=== PATIENT | female | born 1970 | race African-American/Black ===

== ENCOUNTER 2019-03-31 13:16 | Emergency (ER) | payer MEDICAID ==
[~2019-03-31] VITALS: Ht 177.8 cm; Wt 104.3 kg
[~2019-03-31 13:16] MED LIST: ALBU0.5N2; FURO1TAB33
[2019-03-31] MEDS ORDERED: LORazepam 0.5 MG TAB PO ONE (13:45)
[2019-03-31] MEDS ORDERED: ASPirin 81 mg TAB PO ONE (13:45)
[2019-03-31 14:45] LABS: Basophils # (auto) 0.1 uL; Eosinophils # (auto) 0.2 uL; Eosinophils % (auto) 3.4 % (0.0-7.0); Hematocrit 39.9 % (36.0-46.0); Hemoglobin 13.4 g/dL (12.2-16.2); Lymphocytes # (auto) 2.4 uL; Mean Corpuscular Hemoglobin 28.1 pg (28.0-32.0); Mean Corpuscular Hgb Conc. 33.5 g/dL (32.0-36.0); Mean Corpuscular Volume 83.7 fL (80.0-100.0); Monocytes # (auto) 0.7 uL; Monocytes % (auto) 9.5 % (0.0-12.0); Neutrophils # (auto) 3.9 uL; Neutrophils % (auto) 53.1 % (37.0-80.0); Nucleated Red Blood Cells % 0.2 %; Platelet Count (auto) 355 10^3/uL (140-450); Red Blood Cells 4.77 10^6/uL (4.0-5.20); Red Cell Distribution Width 14.4 % (11.8-14.3); White Blood Cell 7.3 10^3/uL (4.4-10.8)
[2019-03-31 15:01] LABS: Albumin 3.8 g/dL (3.4-5.0); Anion Gap 4 (5-15); Blood Urea Nitrogen 17 mg/dL (7-18); Calcium 9.4 mg/dL (8.5-10.1); Carbon Dioxide 26 mmol/L (21-32); Chloride 108 mmol/L (98-107); Glucose 136 mg/dL (74-106); INR 1.08 (0.9-1.15); Partial Thromboplastin Time 31.7 sec (23.64-32.05); Potassium 4.3 mmol/L (3.5-5.1); Sodium 138 mmol/L (136-145)
[2019-03-31 15:07] LABS: Alanine Aminotransferase 17 U/L (13-56); Alkaline Phosphatase 67 U/L (45-117); Aspartate Aminotransferase 13 U/L (15-37); BUN/Creatinine Ratio 12.1; Bilirubin, Total 0.4 mg/dL (0.2-1.0); GFR African American 51 mL/min; GFR Non-African American 42 mL/min; Total Protein 8.5 g/dL (6.4-8.2)
[2019-03-31 23:05] VITALS: BP 120/81
== END 2019-03-31 23:42 | disposition home or self-care (01) ==
LOC: ER 13:22
DX: I11.0 Hypertensive heart disease with heart failure (principal); I50.9 Heart failure, unspecified; J45.909 Unspecified asthma, uncomplicated; E11.9 Type 2 diabetes mellitus without complications; E78.5 Hyperlipidemia, unspecified; Z90.710 Acquired absence of both cervix and uterus; Z88.2 Allergy status to sulfonamides
CPT/HCPCS: 36415; 71046; 80053; 83880; 84484; 85025; 85610; 85730

== ENCOUNTER 2020-09-26 11:47 | Emergency (ER) | payer MEDICAID ==
[~2020-09-26] VITALS: Ht 177.8 cm; Wt 105.7 kg
[2020-09-26 12:39] LABS: Basophils # (auto) 0.1 10 ^3/uL (0-0.2); Basophils % (auto) 1.2 % (0.0-2.0); Eosinophils # (auto) 0.2 10 ^3/uL (0-0.8); Eosinophils % (auto) 2.6 % (0.0-7.0); Hematocrit 40.6 % (36.0-46.0); Hemoglobin 13.2 g/dL (12.2-16.2); Lymphocytes # (auto) 2.2 10 ^3/uL (0.4-5.4); Lymphocytes % (auto) 37.8 % (10.0-50.0); Mean Corpuscular Hemoglobin 27.5 pg (28.0-32.0); Mean Corpuscular Hgb Conc. 32.6 g/dL (32.0-36.0); Mean Corpuscular Volume 84.3 fL (80.0-100.0); Monocytes # (auto) 0.4 10 ^3/uL (0-1.3); Monocytes % (auto) 7.3 % (0.0-12.0); Neutrophils % (auto) 51.1 % (37.0-80.0); Nucleated Red Blood Cells % 0.2 %; Red Blood Cells 4.82 10^6/uL (4.0-5.20); Red Cell Distribution Width 14.6 % (11.8-14.3); White Blood Cell 5.9 10^3/uL (4.4-10.8)
[2020-09-26 12:47] LABS: Albumin 3.4 g/dL (3.4-5.0); Calcium 8.6 mg/dL (8.5-10.1); Potassium 3.5 mmol/L (3.5-5.1)
[2020-09-26 12:50] LABS: Bilirubin, Total 0.4 mg/dL (0.2-1.0); Total Protein 7.9 g/dL (6.4-8.2)
[2020-09-26 13:39] LABS: Urine Bacteria NONE SEEN /hpf (None Seen); Urine Blood Negative /uL (Negative); Urine Hyaline Cast FEW /lpf (0 - 2); Urine Specific Gravity 1.006 (1.001-1.035); Urine WBC 1 /hpf (0 - 5)
[2020-09-26 14:30] VITALS: BP 130/88
== END 2020-09-26 14:38 | disposition home or self-care (01) ==
LOC: ER 11:47
DX: R10.9 Unspecified abdominal pain (principal); J45.909 Unspecified asthma, uncomplicated; I11.0 Hypertensive heart disease with heart failure; I50.9 Heart failure, unspecified; E11.9 Type 2 diabetes mellitus without complications; E78.5 Hyperlipidemia, unspecified; Z90.710 Acquired absence of both cervix and uterus; Z88.2 Allergy status to sulfonamides
CPT/HCPCS: 36415; 74176; 80053; 81001; 85025; 85049

== ENCOUNTER 2024-07-14 11:35 | Inpatient (IN) | payer MEDICAID ==
[~2024-07-14] VITALS: Ht 175.3 cm; Wt 129.9 kg
[~2024-07-14 11:35] MED LIST changes: +ONDA-144 PO
--- NOTE | 2024-07-14 12:06 | ECG ---
[facility] Test Date: 2024-07-14 Test Time: 12:02:23 Pat Name: EULALIO DUVALL Department: ER Room: [address] [place] [address] Gender: F Motion Designer: CARRIE : 1970 Requested By: MILLIE BENITO Order Number: [id number] Reading MD: Jaxon Andrade Measurements Intervals [place] Rate: 90 P: 58 [place]: 169 QRS: 12 QRSD: 108 T: 132 QT: 374 QTc: 458 Interpretive Statements Sinus rhythm Biatrial enlargement Incomplete left bundle branch block Electronically Signed On 07-19-2024 20:48:16 PDT by Jaxon Andrade Please click the below link to view image of tracing.
--- NOTE | 2024-07-14 12:57 | ED.PDOC ---
History of Present Illness HPI Comments 53F presents to the ER w/ prior Hx of Asthma, Cancer, CHF-15%, and Pacemaker which all may be associated to the c/c of SOB and CP just today. Pt reports that her PCP- called and informed her to go to the ER and that she will be admitted because of her CHF being at 15%. Pt notes that the CP does come and go. PMHx of DM, High Lipids, HTN, and Kidney Stones. SHx of Hysterectomy and C- Section. Denies chills, fever, N/V/D or no other associated symptoms, modifiers, recent injuries or sick contacts at this time. Chief Complaint: Extremity Swelling Time Seen by MD: 12:05 Primary Care Provider: ESTEBAN Qureshi Notes: Nurses Notes, Medications, Allergies Allergies: Coded Allergies: Naproxen (Verified Allergy, Unknown, 03/31/19) Sulfa Drugs (Verified Allergy, Unknown, 03/31/19) Home Meds Active Scripts Ondansetron (Zofran) 4 Mg Tab, 1 TAB PO BID, #20 TAB Prov:BERTHA ELMORE 10/29/21 Reported Medications Furosemide (Lasix) 20 Mg Tb, 10 DAILY 01/10/10 Albuterol Sulfate (Albuterol Sulfate) 0.5 % Neb 01/10/10 Information Source: Patient Mode of Arrival: Ambulatory Severity: Moderate Timing: Hours Duration: Since onset, Hours Prehospital treatment: None Past Medical History PAST MEDICAL HISTORY: Asthma, Cancer, CHF (15%), DM, High Lipids, HTN, Kidney Stones Surgical History: , Hysterectomy, Pacemaker 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 Family History Family History: Reviewed,noncontributory to illness, Unknown Social History Smoker: Non-Smoker Alcohol: Unknown Drugs: Denies Drug Use Lives In: Home Constitutional: denies: chills, diaphoresis, fatigue, fever, malaise, sweats, weakness, others EENTM: denies: blurred vision, double vision, ear bleeding, ear discharge, ear drainage, ear pain, ear ringing, eye pain, eye redness, hearing loss, mouth pain, mouth swelling, nasal discharge, nose bleeding, nose congestion, nose pain, photophobia, tearing, throat pain, throat swelling, voice changes, others Respiratory: reports: shortness of breath; denies: cough, hemoptysis, orthopnea, SOB at rest, SOB with excertion, stridor, wheezing, others Cardiovascular: reports: chest pain; denies: dizzy spells, diaphoresis, Dyspnea on exertion, edema, irregular heart beat, left arm pain, lightheadedness, palpitations, PND, syncope, others Gastrointestinal: denies: abdomen distended, abdominal pain, blood streaked bowels, constipated, diarrhea, dysphagia, difficulty swallowing, hematemesis, melena, nausea, poor appetite, poor fluid intake, rectal bleeding, rectal pain, vomiting, others Genitourinary: denies: abnormal vagina bleeding, burning, dyspareunia, dysuria, flank pain, frequency, hematuria, incontinence, pain, , vagina discharge, urgency, others Neurological: denies: dizziness, fainting, headache, left sided numbness, left sided weakness, numbness, paresthesia, pre-existing deficit, right sided numbness, right sided weakness, seizure, speech problems, tingling, tremors, weakness, others Musculoskeletal: denies: back pain, gout, joint pain, joint swelling, muscle pain, muscle stiffness, neck pain, others Integumetry: denies: bruises, change in color, change in hair/nails, dryness, laceration, lesions, lumps, rash, wounds, others Allergic/Immunocompromised: denies: Difficulty Healing, Frequent Infections, Hives, Itching, others Hematologic/Lymphatic: denies: anemia, blood clots, easy bleeding, easy bruising, swollen glands, others Endocrine: denies: excessive hunger, excessive sweating, excessive thirst, excessive urination, flushing, intolerance to cold, intolerance to heat, unexplained weight gain, unexplained weight loss, others Psychiatric: denies: anxiety, bipolar disorder, depression, hopeless, panic disorder, schizophrenia, sleepless, suicidal, others All Other Systems: Reviewed and Negative Physical Exam General Appearance: Moderate Distress, Normal HEENT: Normal ENT Inspection, Pharynx Normal, TMs Normal Neck: Full Range of Motion, Non-Tender, Normal, Normal Inspection Respiratory: Chest Non-Tender, No Accessory Muscle Use, No Respiratory Distress, Other (Coarse breath sounds) Cardiovascular: No Edema, No JVD, No Murmur, No Gallop, Normal Peripheral Pulses, Regular Rate/Rhythm Breast Exam: Deferred Gastrointestinal: No Organomegaly, Non Tender, No Pulsatile Mass, Normal Bowel Sounds, Soft Genitalia: Deferred Pelvic: Deferred Rectal: Deferred Extremities: No calf tenderness, Normal capillary refill, Normal inspection, Normal range of motion, Non-tender, No pedal edema Musculoskeletal : Apperance: Normal Neurologic: Alert, cancer program coordinator II-XII nml as Tested, No Motor Deficits, Normal Affect, Normal Mood, No Sensory Deficits Cerebellar Function: Normal Reflexes: Normal Skin: Dry, Normal Color, Warm Peripheral Pulses: 3+ Radial (R), 3+ Radial (L) Lymphatic: No Adenopathy Was a procedure done? Was a procedure done?: No EKG EKG : Pulse Rate (adult): 98 [place]: Normal Cardiac Rhythm: NSR Block: None Hypertrophy: None ST: Normal Differential Dx Considerations may include: CHF Electrolyte imbalance X-Ray, Labs, Meds, VS Vital Signs Date Time Temp Pulse Resp B/P (MAP) Pulse Ox O2 Delivery O2 Flow Rate FiO2 07/14/24 13:38 96 16 110/81 (91) 95 07/14/24 12:57 98 07/14/24 12:02 90 07/14/24 11:50 97.5 106 18 138/71 (93) 94 97.5 Lab Test 07/14/24 12:39 07/14/24 11:58 Range/Units White Blood Count 5.1 4.4-10.8 10^3/uL Red Blood Count 4.53 4.0-5.20 10^6/uL Hemoglobin 12.5 12.2-16.2 g/dL Hematocrit 38.1 36.0-46.0 % Mean Corpuscular Volume 84.1 80.0-100.0 fL Mean Corpuscular Hemoglobin 27.6 L 28.0-32.0 pg Mean Corpuscular Hemoglobin Concent 32.8 32.0-36.0 g/dL Red Cell Distribution Width 15.7 H 11.8-14.3 % Platelet Count 305 140-450 10^3/uL Mean Platelet Volume 9.0 6.9-10.8 fL Neutrophils (%) (Auto) 54.5 37.0-80.0 % Lymphocytes (%) (Auto) 32.1 10.0-50.0 % Monocytes (%) (Auto) 9.2 0.0-12.0 % Eosinophils (%) (Auto) 3.4 0.0-7.0 % Basophils (%) (Auto) 0.8 0.0-2.0 % Neutrophils # (Auto) 2.8 1.6-8.6 10 ^3/uL Lymphocytes # (Auto) 1.6 0.4-5.4 10 ^3/uL Monocytes # (Auto) 0.5 0-1.3 10 ^3/uL Eosinophils # (Auto) 0.2 0-0.8 10 ^3/uL Basophils # (Auto) 0 0-0.2 10 ^3/uL Nucleated Red Blood Cells 0.1 % Sodium Level 141 136-145 mmol/L Potassium Level 3.8 3.5-5.1 mmol/L Chloride Level 106 98-107 mmol/L Carbon Dioxide Level 28 20-31 mmol/L Anion Gap 7 5-15 Blood Urea Nitrogen 17 9-23 mg/dL Creatinine 1.37 H 0.550-1.02 mg/dL Glomerular Filtration Rate Calc 46 >90 mL/min BUN/Creatinine Ratio 12.4 10.0-20.0 Serum Glucose 104 74-106 mg/dL Calcium Level 10.1 8.7-10.4 mg/dL Urine Color Yellow Yellow Urine Clarity Turbid H Clear Urine pH 6.0 5.0-9.0 Urine Specific [place] 1.033 1.001-1.035 Urine Protein 1+ H Negative Urine Ketones Negative Negative Urine Blood Negative Negative /uL Urine Nitrite Negative Negative Urine Bilirubin Negative Negative Urine Urobilinogen Normal Negative mg/dL Urine Leukocyte Esterase Negative Negative /uL Urine RBC 6 0 - 4 /hpf Urine Microscopic WBC 3 0-5 /HPF Urine Squamous Epithelial Cells Few <5 /hpf Urine Bacteria Few H None Seen /hpf Urine Mucus Few None Seen Urine Glucose 2+ H Normal mg/dL Patient alert. Complaining of shortness a breath. Can not walk without having shortness a breath. Spoke with Cardiology. He wants the patient be admitted. Ejection fraction 15%. WBC within normal limits. Hemoglobin within normal limits. EKG reviewed does not show any acute changes. Was given Lasix. Reviewed her previous visit. Explained to the patient. Continue cardiac monitoring. Time of 1ST Reevaluation: 12:35 Reevaluation 1ST: Unchanged Patient Education/Counseling: Diagnosis, Treatment, Prognosis Family Education/Counseling: No Family Present Departure 1 Departure Time of Disposition: 16:53 Impression: Primary Impression: CHF (congestive heart failure) Qualified Codes: I50.43 - Acute on chronic combined systolic (congestive) and diastolic (congestive) heart failure Disposition: ADMITTED INPATIENT Admit to: Med Surg Condition: Guarded Critical Care Note Critical Care Time?: Yes (45 min-critical care time only) Critical care comment: Continue monitor Stability Stability form required: No Heart Score Heart Score: Heart Score Response (Comments) Value History Slightly Suspicious 0 EKG Normal 0 Age 45-64 1 Risk Factors >3 or Hx ASHD 2 Troponin Normal limit 0 Total 3 I personally scribed for MILLIE BENITO MD ([email or web address]) on 07/14/24 at 12:57. Electronically submitted by Josue Guo ([email or web address]). MILLIE BENITO MD Jul 14, 2024 12:57
[2024-07-14 12:59] LABS: Basophils # (auto) 0 10 ^3/uL (0-0.2); Basophils % (auto) 0.8 % (0.0-2.0); Eosinophils # (auto) 0.2 10 ^3/uL (0-0.8); Eosinophils % (auto) 3.4 % (0.0-7.0); Hematocrit 38.1 % (36.0-46.0); Hemoglobin 12.5 g/dL (12.2-16.2); Lymphocytes # (auto) 1.6 10 ^3/uL (0.4-5.4); Lymphocytes % (auto) 32.1 % (10.0-50.0); Mean Corpuscular Hemoglobin 27.6 pg (28.0-32.0); Mean Corpuscular Hgb Conc. 32.8 g/dL (32.0-36.0); Mean Corpuscular Volume 84.1 fL (80.0-100.0); Monocytes # (auto) 0.5 10 ^3/uL (0-1.3); Monocytes % (auto) 9.2 % (0.0-12.0); Neutrophils # (auto) 2.8 10 ^3/uL (1.6-8.6); Neutrophils % (auto) 54.5 % (37.0-80.0); Nucleated Red Blood Cells % 0.1 %; Platelet Count (auto) 305 10^3/uL (140-450); Red Blood Cells 4.53 10^6/uL (4.0-5.20); Red Cell Distribution Width 15.7 % (11.8-14.3); White Blood Cell 5.1 10^3/uL (4.4-10.8)
[2024-07-14 13:06] LABS: Chloride 106 mmol/L (98-107); Potassium 3.8 mmol/L (3.5-5.1); Sodium 141 mmol/L (136-145)
[2024-07-14 13:07] LABS: Anion Gap 7 (5-15); Carbon Dioxide 28 mmol/L (20-31)
[2024-07-14 13:08] LABS: Calcium 10.1 mg/dL (8.7-10.4)
[2024-07-14 13:13] LABS: BUN/Creatinine Ratio 12.4 (10.0-20.0); Blood Urea Nitrogen 17 mg/dL (9-23); Glucose 104 mg/dL (74-106)
[2024-07-14 14:10] LABS: Urine Bacteria FEW /hpf (None Seen); Urine Blood Negative /uL (Negative); Urine Clarity Turbid (Clear); Urine Color Yellow (Yellow); Urine Mucus FEW (None Seen); Urine Protein, UAD 1+ (Negative); Urine Specific Gravity 1.033 (1.001-1.035); Urine Squamous Epithelial Cell FEW /hpf (<5); Urine Urobilinogen Normal (Negative); Urine WBC 3 /HPF (0-5)
[2024-07-14] MEDS ORDERED: FUROSEMIDE 40 MG/4 ML VIAL IV ONE (17:00)
[2024-07-14] MEDS ORDERED: HYDROcodone-ACET 5/325MG TAB PO PRN (18:30)
[2024-07-14] MEDS ORDERED: ONDANSETRON HCL 4 MG/2 ML VIAL IV PRN (18:30)
[2024-07-14] MEDS ORDERED: DOCUSATE SOD 100 MG CAP PO PRN (18:30)
--- NOTE | 2024-07-14 18:35 | DVHHP2 ---
Admitting Diagnosis: Lower leg swollen History of Present Illness 53F presents to the ER w/ prior Hx of Asthma, Cancer, CHF-15%, and Pacemaker which all may be associated to the c/c of SOB and CP just today. Pt reports that her PCP- called and informed her to go to the ER and that she will be admitted because of her CHF being at 15%. Pt notes that the CP does come and go. PMHx of DM, High Lipids, HTN, and Kidney Stones. SHx of Hysterectomy and C- Section. Denies chills, fever, N/V/D or no other associated symptoms, modifiers, recent injuries or sick contacts at this time. 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 Family History Family History: Reviewed,noncontributory to illness, Unknown Social History Smoker: Non-Smoker Alcohol: Unknown Drugs: Denies Drug Use Lives In: Home Allergies: Coded Allergies: Naproxen (Verified Allergy, Unknown, 03/31/19) Sulfa Drugs (Verified Allergy, Unknown, 03/31/19) Home Meds Active Scripts Ondansetron (Zofran) 4 Mg Tab, 1 TAB PO BID, #20 TAB Prov:BERTHA ELMORE 10/29/21 Reported Medications Furosemide (Lasix) 20 Mg Tb, 10 DAILY 01/10/10 Albuterol Sulfate (Albuterol Sulfate) 0.5 % Neb 01/10/10 Vital Signs Vital Signs Date Time Temp Pulse Resp B/P (MAP) Pulse Ox O2 Delivery O2 Flow Rate FiO2 07/14/24 16:52 89 16 114/82 (93) 95 07/14/24 11:50 97.5 97.5 Physical Exam Generally-53 years old woman, morbidly obese, lying in bed. Mild distress HEENT-atraumatic normocephalic Heart-regular rate and rhythm Lungs decreased breath sounds bilaterally Abdomen soft nontender nondistended Musculoskeletal-+ two pedal edema, cyanosis Neuro-AO x3, no focal deficits Results Labs Test 07/14/24 12:39 07/14/24 11:58 Range/Units White Blood Count 5.1 4.4-10.8 10^3/uL Red Blood Count 4.53 4.0-5.20 10^6/uL Hemoglobin 12.5 12.2-16.2 g/dL Hematocrit 38.1 36.0-46.0 % Mean Corpuscular Volume 84.1 80.0-100.0 fL Mean Corpuscular Hemoglobin 27.6 L 28.0-32.0 pg Mean Corpuscular Hemoglobin Concent 32.8 32.0-36.0 g/dL Red Cell Distribution Width 15.7 H 11.8-14.3 % Platelet Count 305 140-450 10^3/uL Mean Platelet Volume 9.0 6.9-10.8 fL Neutrophils (%) (Auto) 54.5 37.0-80.0 % Lymphocytes (%) (Auto) 32.1 10.0-50.0 % Monocytes (%) (Auto) 9.2 0.0-12.0 % Eosinophils (%) (Auto) 3.4 0.0-7.0 % Basophils (%) (Auto) 0.8 0.0-2.0 % Neutrophils # (Auto) 2.8 1.6-8.6 10 ^3/uL Lymphocytes # (Auto) 1.6 0.4-5.4 10 ^3/uL Monocytes # (Auto) 0.5 0-1.3 10 ^3/uL Eosinophils # (Auto) 0.2 0-0.8 10 ^3/uL Basophils # (Auto) 0 0-0.2 10 ^3/uL Nucleated Red Blood Cells 0.1 % Sodium Level 141 136-145 mmol/L Potassium Level 3.8 3.5-5.1 mmol/L Chloride Level 106 98-107 mmol/L Carbon Dioxide Level 28 20-31 mmol/L Anion Gap 7 5-15 Blood Urea Nitrogen 17 9-23 mg/dL Creatinine 1.37 H 0.550-1.02 mg/dL Glomerular Filtration Rate Calc 46 >90 mL/min BUN/Creatinine Ratio 12.4 10.0-20.0 Serum Glucose 104 74-106 mg/dL Calcium Level 10.1 8.7-10.4 mg/dL Urine Color Yellow Yellow Urine Clarity Turbid H Clear Urine pH 6.0 5.0-9.0 Urine Specific [place] 1.033 1.001-1.035 Urine Protein 1+ H Negative Urine Ketones Negative Negative Urine Blood Negative Negative /uL Urine Nitrite Negative Negative Urine Bilirubin Negative Negative Urine Urobilinogen Normal Negative mg/dL Urine Leukocyte Esterase Negative Negative /uL Urine RBC 6 0 - 4 /hpf Urine Microscopic WBC 3 0-5 /HPF Urine Squamous Epithelial Cells Few <5 /hpf Urine Bacteria Few H None Seen /hpf Urine Mucus Few None Seen Urine Glucose 2+ H Normal mg/dL Primary Diagnosis Acute on chronic systolic heart failure Plan IV Lasix 40 mg b.i.d. Check echo of the heart Check daily weights Strict in and out Fluid restriction Potassium greater than four, magnesium greater than two [address] Lowe patient Cardiac diet Full code No GI prophylaxis needed Heparin for DVT prophylaxis Plan discussed with: Patient Problems List: (1) CHF (congestive heart failure) Status: Acute Date of Service: Jul 14, 2024 Billing Provider: ROSANA TATUM MD Common Visit Codes: [id number] INP/OBS CARE (HIGH) ROSANA TATUM MD Jul 14, 2024 18:35
[2024-07-14] MEDS: FUROSEMIDE 40 MG/4 ML VIAL IV SCH (20:15)
[2024-07-14] MEDS: SODIUM CHLOR 0.9% PF (SALINE LOCK) 10ML VIAL/SYR IV SCH (22:00)
[2024-07-14 22:10] VITALS: BP 125/78; PULSE 89; RESP 18; TEMP 97.7; O2SAT 96
[2024-07-14 23:16] VITALS: BP 125/78; PULSE 89; RESP 18; TEMP 97.7; O2SAT 96
[2024-07-15] VITALS (7 sets, daily range): BP systolic 100–150; BP diastolic 54–78; PULSE 76–98; RESP 16–20; TEMP 97.5–98.1; O2SAT 92–97
[2024-07-15 04:50] LABS: Basophils # (auto) 0 10 ^3/uL (0-0.2); Basophils % (auto) 0.9 % (0.0-2.0); Eosinophils # (auto) 0.2 10 ^3/uL (0-0.8); Eosinophils % (auto) 4.3 % (0.0-7.0); Hematocrit 37.1 % (36.0-46.0); Hemoglobin 12.1 g/dL (12.2-16.2); Lymphocytes # (auto) 1.7 10 ^3/uL (0.4-5.4); Lymphocytes % (auto) 34.2 % (10.0-50.0); Mean Corpuscular Hemoglobin 27.3 pg (28.0-32.0); Mean Corpuscular Hgb Conc. 32.5 g/dL (32.0-36.0); Mean Corpuscular Volume 83.9 fL (80.0-100.0); Monocytes # (auto) 0.6 10 ^3/uL (0-1.3); Monocytes % (auto) 12.1 % (0.0-12.0); Neutrophils # (auto) 2.5 10 ^3/uL (1.6-8.6); Neutrophils % (auto) 48.5 % (37.0-80.0); Platelet Count (auto) 281 10^3/uL (140-450); Red Blood Cells 4.42 10^6/uL (4.0-5.20); Red Cell Distribution Width 15.4 % (11.8-14.3); White Blood Cell 5.1 10^3/uL (4.4-10.8)
[2024-07-15 05:07] LABS: Alanine Aminotransferase 11 U/L (7-40); Albumin 4.2 g/dL (3.2-4.8); Alkaline Phosphatase 60 U/L (46-116); Anion Gap 7 (5-15); BUN/Creatinine Ratio 14.8 (10.0-20.0); Blood Urea Nitrogen 19 mg/dL (9-23); Calcium 9.5 mg/dL (8.7-10.4); Carbon Dioxide 26 mmol/L (20-31); Chloride 106 mmol/L (98-107); Glucose 89 mg/dL (74-106); Magnesium 2.3 mg/dL (1.6-2.6); Potassium 3.7 mmol/L (3.5-5.1); Sodium 139 mmol/L (136-145); Total Protein 7.3 g/dL (5.7-8.2)
[2024-07-15 05:08] LABS: Bilirubin, Total 0.4 mg/dL (0.2-1.0)
[2024-07-15 05:54] LABS: Aspartate Aminotransferase 11 U/L (13-40)
--- NOTE | 2024-07-15 09:34 | DVHINCON2 ---
Date Seen: Jul 15, 2024 Referring Physician MD Gt Reason for Consultation CHF exacerbation History of Present Illness This is a 53-year-old female who presented to the emergency room with a chief complaint of bilateral lower extremity edema. The patient complains of bilateral lower extremity edema associated with SOB, HUITRON, and PND for approximately five days. Denies chest pain, palpitations, diaphoresis, or sync opal events. She underwent a 12 lead electrocardiogram revealing a sinus rhythm with T-wave inversion to lead I, aVL, and suggestive of left ventricular hypertrophy. Follows up in the outpatient setting with Dr. Lowe undergoing an AICD interrogation on 06/13/2024 and a transthoracic echocardiogram revealing an LVEF of 15% on 06/26/2024. The patient also reports undergoing a cardiac catheterization and coronary angiogram without catheter based intervention given normal coronaries at [facility] on 2022. Significant medical history includes nonischemic cardiomyopathy, presence of AICD (Medtronic, 2022), hypertension, dyslipidemia, ach-nbnatft-flwjxbnmi diabetes mellitus, cerebrovascular accidents x2, and morbid obesity. Past Medical History Past medical history reviewed. No other significant than mentioned above. Past Surgical History AICD, 2022 Hysterectomy C-sections Family History Family history reviewed. Social History Denies the use of illicit drugs, alcohol, or tobacco use. Allergies: Coded Allergies: Naproxen (Verified Allergy, Unknown, 03/31/19) Sulfa Drugs (Verified Allergy, Unknown, 03/31/19) Home Meds Active Scripts Ondansetron (Zofran) 4 Mg Tab, 1 TAB PO BID, #20 TAB Prov:BERTHA ELMROE 10/29/21 Reported Medications Furosemide (Lasix) 20 Mg Tb, 10 DAILY 01/10/10 Albuterol Sulfate (Albuterol Sulfate) 0.5 % Neb 01/10/10 Home Meds Home medications reviewed. Current Medications Current Medications Medications (Trade) Dose Ordered Sig/Tavia Route PRN Reason Start Time Stop Time Status Last Admin Furosemide (Lasix Injection) 40 mg BIDD IV 07/14/24 20:00 Sodium Chloride (Saline Lock Ns) 10 ml Q8HR IV 07/14/24 22:00 07/15/24 06:00 Docusate Sodium (Colace Capsule) 100 mg BIDPRN PRN PO FOR CONSTIPATION 07/14/24 18:30 Acetaminophen (Tylenol Tablet) 650 mg Q6HP PRN PO PAIN SCALE 1-3 OR TEMP>100.4 07/14/24 18:30 Acetaminophen/ Hydrocodone Bitart ([place] 5/325MG Tab) 1 tab Q4HP PRN PO MODERATE PAIN (4-6 PAIN SCALE) 07/14/24 18:30 Ondansetron HCl (Zofran) 4 mg Q4HP PRN IV NAUSEA / VOMITING 07/14/24 18:30 Review of Systems Constitutional: No symptom reported Ears, Nose, & Throat: No symptom reported Eyes: No symptom reported Neurological: No symptoms reported Pulmonary/Respiratory: SOB, HUITRON, PND Cardiovascular: BLE edema Gastrointestinal: No symptom reported Genitourinary: No symptom reported Musculoskeletal: No symptom reported Skin: No symptom reported Psychiatric: No symptom reported Endocrine: No symptom reported Hemotologic/Lymphatic: No symptom reported Vital Signs Vital Signs Date Time Temp Pulse Resp B/P (MAP) Pulse Ox O2 Delivery O2 Flow Rate FiO2 07/15/24 08:02 97.8 86 18 122/72 (89) 93 97.8 07/14/24 23:16 Room Air* 0 21 Physical Exam General Appearance: Cooperative. Well developed. Morbidly obese. In no acute distress Head Exam: Normal inspection Neck Exam: Normal inspection. Non-tender. Normal alignment Pulmonary/Respiratory: Chest non-tender. Crackles to bilateral breath sounds Cardiovascular/Chest: Regular rate and rhythm. S1, S2. Sinus rhythm with T- wave inversion to lead I and aVL. No murmurs. No JVD. Peripheral Pulses: 2+ Radial (R). 2+ Radial (L). 2+ Pedal (R). 2+ Pedal (L) Abdominal Exam: Normal bowel sounds. Soft. Nontender. No hepatospenomegaly. No masses Ankle Exam: Positive ankle edema Lower extremities: Positive lower extremity edema Neuro/Mental Status: A&O x4. Coherent Thoughts/Psych: Normal thought pattern. Appropriate mood and affect. Good judgement and insight Appearance: In no acute distress Skin Exam: Normal inspection. Normal color. Warm. Dry Labs/Diagnostic Data Labs Test 07/15/24 04:36 07/14/24 12:39 07/14/24 11:58 Range/Units White Blood Count 5.1 4.4-10.8 10^3/uL Red Blood Count 4.42 4.0-5.20 10^6/uL Hemoglobin 12.1 L 12.2-16.2 g/dL Hematocrit 37.1 36.0-46.0 % Mean Corpuscular Volume 83.9 80.0-100.0 fL Mean Corpuscular Hemoglobin 27.3 L 28.0-32.0 pg Mean Corpuscular Hemoglobin Concent 32.5 32.0-36.0 g/dL Red Cell Distribution Width 15.4 H 11.8-14.3 % Platelet Count 281 140-450 10^3/uL Mean Platelet Volume 8.8 6.9-10.8 fL Neutrophils (%) (Auto) 48.5 37.0-80.0 % Lymphocytes (%) (Auto) 34.2 10.0-50.0 % Monocytes (%) (Auto) 12.1 H 0.0-12.0 % Eosinophils (%) (Auto) 4.3 0.0-7.0 % Basophils (%) (Auto) 0.9 0.0-2.0 % Neutrophils # (Auto) 2.5 1.6-8.6 10 ^3/uL Lymphocytes # (Auto) 1.7 0.4-5.4 10 ^3/uL Monocytes # (Auto) 0.6 0-1.3 10 ^3/uL Eosinophils # (Auto) 0.2 0-0.8 10 ^3/uL Basophils # (Auto) 0 0-0.2 10 ^3/uL Nucleated Red Blood Cells 0.0 % Sodium Level 139 136-145 mmol/L Potassium Level 3.7 3.5-5.1 mmol/L Chloride Level 106 98-107 mmol/L Carbon Dioxide Level 26 20-31 mmol/L Anion Gap 7 5-15 Blood Urea Nitrogen 19 9-23 mg/dL Creatinine 1.28 H 0.550-1.02 mg/dL Glomerular Filtration Rate Calc 50 >90 mL/min BUN/Creatinine Ratio 14.8 10.0-20.0 Serum Glucose 89 74-106 mg/dL Calcium Level 9.5 8.7-10.4 mg/dL Magnesium Level 2.3 1.6-2.6 mg/dL Total Bilirubin 0.4 0.2-1.0 mg/dL Aspartate Amino Transferase (AST) 11 L 13-40 U/L Alanine Aminotransferase (ALT) 11 7-40 U/L Alkaline Phosphatase 60 46-116 U/L Total Protein 7.3 5.7-8.2 g/dL Albumin 4.2 3.2-4.8 g/dL B-Type Natriuretic Peptide 623.14 0-100 pg/mL Urine Color Yellow Yellow Urine Clarity Turbid H Clear Urine pH 6.0 5.0-9.0 Urine Specific [place] 1.033 1.001-1.035 Urine Protein 1+ H Negative Urine Ketones Negative Negative Urine Blood Negative Negative /uL Urine Nitrite Negative Negative Urine Bilirubin Negative Negative Urine Urobilinogen Normal Negative mg/dL Urine Leukocyte Esterase Negative Negative /uL Urine RBC 6 0 - 4 /hpf Urine Microscopic WBC 3 0-5 /HPF Urine Squamous Epithelial Cells Few <5 /hpf Urine Bacteria Few H None Seen /hpf Urine Mucus Few None Seen Urine Glucose 2+ H Normal mg/dL Assessment Acute on chronic decompensated HFrEF with LVEF of 15%, NYHA Class III Nonischemic cardiomyopathy Presence of AICD (Medtronic, 2022) Hypertension Dyslipidemia Hx of CVAs Morbid obesity Plan/Recommendation (Dr. Lowe) We will continue further evaluation with a transthoracic echocardiogram. In the meantime, continue preload and afterload reduction as tolerated as well as strict I&Os, daily weight, and fluid restrictions. Maximize GDMT for HFrEF as tolerated. Initiate DVT/VTE prophylaxis. Continue follow-ups with Dr. Lowe in the outpatient setting as scheduled. Thank you for allowing us to participate in this patient's care. Please call if you have any questions or concerns. This medical document was created using an electronic medical record system with voice recognition software and computerized dictation system. Although this document has been carefully reviewed, there might still be some phonetic and typographical errors. Occasional wrong-word or ``sound-alike substitutions may have occurred due to the inherent limitations of voice recognition software. These areas are purely typographical due to imperfections of the software programs and do not reflect any compromise in the patient's medical care. Please read the chart carefully and recognize, using context, where these substitutions have occurred. Plan discussed with: Patient, Other NYHA Physical activity limitations: Class3(Marked) ordinary Date of Service: Jul 15, 2024 Billing Provider: ADI TURK Cardiology Common Codes: [id number] INP/OBS CARE (High) ADI TURK Jul 15, 2024 09:34
--- NOTE | 2024-07-15 10:13 | DVH ---
EXAM: XR Chest, 1 View CLINICAL INDICATION: SOB TECHNIQUE: Frontal view of the chest. COMPARISON: None FINDINGS: LUNGS AND PLEURAL SPACES: Mild congestive heart failure. No consolidation. No pneumothorax. HEART: Unremarkable. No cardiomegaly. MEDIASTINUM: Unremarkable. Normal mediastinal contour. BONES/JOINTS: Unremarkable. No acute fracture. TUBES, LINES AND DEVICES: Left-sided cardiac pacemaker. OTHER FINDINGS: . IMPRESSION: Mild congestive heart failure.
[2024-07-15] MEDS: ACETAMINOPHEN 325 MG TAB PO PRN (10:53)
[2024-07-15] MEDS: CARVEDILOL 3.125 MG TAB PO SCH (11:48)
[2024-07-15] MEDS: SACUBITRIL-VALSARTAN 24mg/26mg TAB PO SCH (11:49)
[2024-07-15] MEDS: EMPAGLIFLOZIN 10 MG TAB PO SCH (11:49)
[2024-07-15] MEDS: FUROSEMIDE 40 MG/4 ML VIAL IV ONE (11:49)
[2024-07-15] MEDS: SPIRONOLACTONE 25 MG TAB PO SCH (11:49)
--- NOTE | 2024-07-15 12:39 | DVHPN2 ---
Changes from previous H/P or p: No Changes Objective Vitals Vital Signs Date Time Temp Pulse Resp B/P (MAP) Pulse Ox O2 Delivery O2 Flow Rate FiO2 07/15/24 11:49 150/56 07/15/24 11:48 88 07/15/24 08:02 97.8 18 93 97.8 07/14/24 23:16 Room Air* 0 21 Medications Current Medications Medications Dose Ordered Sig/Tavia Route Start Time Stop Time Status Last Admin Dose Admin Furosemide 40 mg BIDD IV 07/14/24 20:00 Sodium Chloride 10 ml Q8HR IV 07/14/24 22:00 07/15/24 06:00 10 ML Docusate Sodium 100 mg BIDPRN PRN PO 07/14/24 18:30 Acetaminophen 650 mg Q6HP PRN PO 07/14/24 18:30 07/15/24 10:53 650 MG Acetaminophen/ Hydrocodone Bitart 1 tab Q4HP PRN PO 07/14/24 18:30 Ondansetron HCl 4 mg Q4HP PRN IV 07/14/24 18:30 Carvedilol 3.125 mg Q12HR PO 07/15/24 10:00 07/15/24 11:48 3.125 MG Sacubitril/ Valsartan 1 tab BID PO 07/15/24 10:00 07/15/24 11:49 1 TAB Empaglifozin 10 mg DAILY PO 07/15/24 10:00 07/15/24 11:49 10 MG Spironolactone 12.5 mg DAILY PO 07/15/24 10:00 07/15/24 11:49 12.5 MG Enoxaparin Sodium 40 mg DAILY SC 07/16/24 10:00 Laboratory Results Laboratory Tests 07/15/24 04:36 Chemistry Test 07/14/24 12:39 07/15/24 04:36 Calcium Level 10.1 mg/dL (8.7-10.4) 9.5 mg/dL (8.7-10.4) Albumin 4.2 g/dL (3.2-4.8) Magnesium Level 2.3 mg/dL (1.6-2.6) Total Protein 7.3 g/dL (5.7-8.2) Cardiac Markers Test 07/14/24 12:39 B-Type Natriuretic Peptide 623.14 pg/mL (0-100) LFT Test 07/15/24 04:36 Alanine Aminotransferase (ALT) 11 U/L (7-40) Alkaline Phosphatase 60 U/L (46-116) Aspartate Amino Transferase (AST) 11 U/L (13-40) L Total Bilirubin 0.4 mg/dL (0.2-1.0) Urinalysis Test 07/14/24 11:58 Urine Color Yellow (Yellow) Urine Clarity Turbid (Clear) H Urine pH 6.0 (5.0-9.0) Urine Specific [place] 1.033 (1.001-1.035) Urine Protein 1+ (Negative) H Urine Ketones Negative (Negative) Urine Blood Negative /uL (Negative) Urine Nitrite Negative (Negative) Urine Bilirubin Negative (Negative) Urine Urobilinogen Normal mg/dL (Negative) Urine Leukocyte Esterase Negative /uL (Negative) Urine RBC 6 /hpf (0 - 4) Urine Microscopic WBC 3 /HPF (0-5) Urine Squamous Epithelial Cells Few /hpf (<5) Urine Bacteria Few /hpf (None Seen) H Urine Mucus Few (None Seen) Urine Glucose 2+ mg/dL (Normal) H Labs and/or images reviewed: Labs reviewed by me, Image(s) reviewed by me Assessment/Plan Assessment/Plan Acute on chronic decompensated HFrEF with LVEF of 15%, NYHA Class III, continue Jardiance Entresto Aldactone Coreg and Lasix, cardiology consult Dr. 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
[2024-07-15] MEDS: FUROSEMIDE 40 MG/4 ML VIAL IV SCH (21:21)
[2024-07-16] VITALS (9 sets, daily range): BP systolic 81–120; BP diastolic 44–72; PULSE 60–131; RESP 15–20; TEMP 97.6–98.8; O2SAT 91–96
[2024-07-16 07:33] LABS: Basophils # (auto) 0 10 ^3/uL (0-0.2); Basophils % (auto) 0.5 % (0.0-2.0); Eosinophils # (auto) 0.2 10 ^3/uL (0-0.8); Eosinophils % (auto) 3.6 % (0.0-7.0); Hematocrit 36.4 % (36.0-46.0); Hemoglobin 12.2 g/dL (12.2-16.2); Lymphocytes # (auto) 1.4 10 ^3/uL (0.4-5.4); Lymphocytes % (auto) 26.2 % (10.0-50.0); Mean Corpuscular Hemoglobin 28.1 pg (28.0-32.0); Mean Corpuscular Hgb Conc. 33.4 g/dL (32.0-36.0); Mean Corpuscular Volume 84.1 fL (80.0-100.0); Monocytes # (auto) 0.6 10 ^3/uL (0-1.3); Monocytes % (auto) 11.1 % (0.0-12.0); Neutrophils # (auto) 3.2 10 ^3/uL (1.6-8.6); Neutrophils % (auto) 58.6 % (37.0-80.0); Platelet Count (auto) 283 10^3/uL (140-450); Red Blood Cells 4.32 10^6/uL (4.0-5.20); Red Cell Distribution Width 15.5 % (11.8-14.3); White Blood Cell 5.5 10^3/uL (4.4-10.8)
[2024-07-16 07:58] LABS: Alanine Aminotransferase 13 U/L (7-40); Albumin 4.3 g/dL (3.2-4.8); Alkaline Phosphatase 61 U/L (46-116); Anion Gap 9 (5-15); BUN/Creatinine Ratio 14.4 (10.0-20.0); Bilirubin, Total 0.5 mg/dL (0.2-1.0); Blood Urea Nitrogen 21 mg/dL (9-23); Calcium 9.7 mg/dL (8.7-10.4); Carbon Dioxide 25 mmol/L (20-31); Chloride 103 mmol/L (98-107); Glucose 89 mg/dL (74-106); Potassium 3.7 mmol/L (3.5-5.1); Sodium 137 mmol/L (136-145); Total Protein 7.7 g/dL (5.7-8.2)
[2024-07-16 07:59] LABS: Aspartate Aminotransferase 10 U/L (13-40)
[2024-07-16] MEDS: ENOXAPARIN SOD 40 MG/0.4 ML SYRINGE SC SCH (09:13)
--- NOTE | 2024-07-16 09:38 | DVHPN2 ---
Reviewed: Care Plan, H&P, Labs, Medications, Previous Orders, Radiology Changes from previous H/P or p: No Changes Objective Vitals Vital Signs Date Time Temp Pulse Resp B/P (MAP) Pulse Ox O2 Delivery O2 Flow Rate FiO2 07/16/24 09:23 97.8 81 20 120/72 (88) 92 97.8 07/15/24 20:00 Room Air* 0 21 Intake/Output Intake and Output 07/16/24 07:00 Intake Total 686 ml Output Total 2700 ml Balance -2014 ml Intake Oral 686 ml Output Urine Total 2700 ml Medications Current Medications Medications Dose Ordered Sig/Tavia Route Start Time Stop Time Status Last Admin Dose Admin Sodium Chloride 10 ml Q8HR IV 07/14/24 22:00 07/16/24 05:50 10 ML Docusate Sodium 100 mg BIDPRN PRN PO 07/14/24 18:30 Acetaminophen 650 mg Q6HP PRN PO 07/14/24 18:30 07/15/24 10:53 650 MG Acetaminophen/ Hydrocodone Bitart 1 tab Q4HP PRN PO 07/14/24 18:30 Ondansetron HCl 4 mg Q4HP PRN IV 07/14/24 18:30 Carvedilol 3.125 mg Q12HR PO 07/15/24 10:00 07/15/24 11:48 3.125 MG Sacubitril/ Valsartan 1 tab BID PO 07/15/24 10:00 07/16/24 09:08 1 TAB Empaglifozin 10 mg DAILY PO 07/15/24 10:00 07/16/24 09:08 10 MG Spironolactone 12.5 mg DAILY PO 07/15/24 10:00 07/16/24 09:08 12.5 MG Enoxaparin Sodium 40 mg DAILY SC 07/16/24 10:00 Furosemide 40 mg Q12H IV 07/15/24 21:00 07/16/24 09:09 40 MG Laboratory Results Laboratory Tests 07/16/24 06:11 Chemistry Test 07/16/24 06:11 Albumin 4.3 g/dL (3.2-4.8) Calcium Level 9.7 mg/dL (8.7-10.4) Total Protein 7.7 g/dL (5.7-8.2) LFT Test 07/16/24 06:11 Alanine Aminotransferase (ALT) 13 U/L (7-40) Alkaline Phosphatase 61 U/L (46-116) Aspartate Amino Transferase (AST) 10 U/L (13-40) L Total Bilirubin 0.5 mg/dL (0.2-1.0) Urinalysis Test 07/14/24 11:58 Urine Color Yellow (Yellow) Urine Clarity Turbid (Clear) H Urine pH 6.0 (5.0-9.0) Urine Specific [place] 1.033 (1.001-1.035) Urine Protein 1+ (Negative) H Urine Ketones Negative (Negative) Urine Blood Negative /uL (Negative) Urine Nitrite Negative (Negative) Urine Bilirubin Negative (Negative) Urine Urobilinogen Normal mg/dL (Negative) Urine Leukocyte Esterase Negative /uL (Negative) Urine RBC 6 /hpf (0 - 4) Urine Microscopic WBC 3 /HPF (0-5) Urine Squamous Epithelial Cells Few /hpf (<5) Urine Bacteria Few /hpf (None Seen) H Urine Mucus Few (None Seen) Urine Glucose 2+ mg/dL (Normal) H Labs and/or images reviewed: Labs reviewed by me, Image(s) reviewed by me Assessment/Plan Assessment/Plan Acute on chronic decompensated HFrEF with LVEF of 15%, NYHA Class III, continue Jardiance Entresto Aldactone Coreg and Lasix, cardiology consult Dr. 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
--- NOTE | 2024-07-16 10:24 | DVHPN2 ---
[facility] 07/16/24 1024: Consult Progress Note Date Seen: Jul 16, 2024 Subjective Patient reports: Feels better Review of Systems: CVS:Normal, RESPIRATORY:Normal, NEURO:Normal Objective vital signs Vital Sign Date Time Temp Pulse Resp B/P (MAP) Pulse Ox O2 Delivery O2 Flow Rate FiO2 07/16/24 09:23 97.8 81 20 120/72 (88) 92 97.8 07/16/24 08:00 Room Air* 0 21 Total Intake and Output 07/15/24 07/15/24 07/16/24 15:00 23:00 07:00 Intake Total 236 ml 450 ml Output Total 1600 ml 1100 ml Balance -1364 ml -650 ml medications Current Medications Medications Dose Ordered Sig/Tavia Route Start Time Stop Time Status Last Admin Dose Admin Sodium Chloride 10 ml Q8HR IV 07/14/24 22:00 07/16/24 05:50 10 ML Docusate Sodium 100 mg BIDPRN PRN PO 07/14/24 18:30 Acetaminophen 650 mg Q6HP PRN PO 07/14/24 18:30 07/15/24 10:53 650 MG Acetaminophen/ Hydrocodone Bitart 1 tab Q4HP PRN PO 07/14/24 18:30 Ondansetron HCl 4 mg Q4HP PRN IV 07/14/24 18:30 Carvedilol 3.125 mg Q12HR PO 07/15/24 10:00 07/15/24 11:48 3.125 MG Sacubitril/ Valsartan 1 tab BID PO 07/15/24 10:00 07/16/24 09:08 1 TAB Empaglifozin 10 mg DAILY PO 07/15/24 10:00 07/16/24 09:08 10 MG Spironolactone 12.5 mg DAILY PO 07/15/24 10:00 07/16/24 09:08 12.5 MG Enoxaparin Sodium 40 mg DAILY SC 07/16/24 10:00 Furosemide 40 mg Q12H IV 07/15/24 21:00 07/16/24 09:09 40 MG Aspirin 81 mg DAILY PO 07/17/24 10:00 UNV Examination: LUNGS:Normal (Denies HUITRON), CVS:Normal (BLE edema improved), NEURO:Normal laboratory and microbiology Laboratory Tests 07/16/24 06:11 Test 07/16/24 06:11 Range/Units Serum Glucose 89 74-106 mg/dL Problem List/Assessment/Plan Problem List/Assessment/Plan Acute on chronic decompensated HFrEF with LVEF of 15%, NYHA Class III Nonischemic cardiomyopathy Presence of AICD (Medtronic, 2022) Hypertension Dyslipidemia Hx of CVAs Morbid obesity Plan/Recommendation (Dr. Peguero) Transthoracic echocardiogram from Dr. Peguero's office revealed LVEF of 15%. Continue preload and afterload reduction, strict I&Os, daily weight, and fluid restrictions. Maximize GDMT for HFrEF as tolerated. Follow-up with Dr. Peguero in the outpatient setting within 1-2 weeks post-discharge. Cardiac stable. There is no further cardiac work-up indicated at this time. Kindly call if in need to re-consult. Thank you for allowing us to participate in this patient's care. This medical document was created using an electronic medical record system with voice recognition software and computerized dictation system. Although this document has been carefully reviewed, there might still be some phonetic and typographical errors. Occasional wrong-word or ``sound-alike substitutions may have occurred due to the inherent limitations of voice recognition software. These areas are purely typographical due to imperfections of the software programs and do not reflect any compromise in the patient's medical care. Please read the chart carefully and recognize, using context, where these substitutions have occurred. Plan discussed with: Patient, Other Date of Service: Jul 16, 2024 Billing Provider: ADI TURK Cardiology Common Codes: [id number] INP/OBS CARE(Mod) ELIF PEGUERO MD 07/16/24 1552: Consult Progress Note Problem List/Assessment/Plan Problem List/Assessment/Plan pt seen doing well, good uop, 1 dose of metolazone today, dc home 07/17 if stable ADI TURK Jul 16, 2024 10:24 ELIF PEGUERO MD Jul 16, 2024 15:52
[2024-07-16] MEDS: ASPirin 81 mg TAB PO ONE (12:13)
[2024-07-16] MEDS: SODIUM CHLORIDE 0.9% 200 ML IV SCH (16:15)
[2024-07-16] MEDS ORDERED: HYDROcodone-ACET 5/325MG TAB PO PRN (23:15)
[2024-07-17 01:00] VITALS: BP 97/58; PULSE 76; RESP 14; TEMP 97.9; O2SAT 95
[2024-07-17] MEDS: IBUPROFEN 600 MG TAB PO PRN (01:28)
[2024-07-17 05:00] VITALS: BP 96/63; PULSE 77; RESP 15; TEMP 97.9; O2SAT 91
[2024-07-17 06:26] LABS: Basophils # (auto) 0 10 ^3/uL (0-0.2); Basophils % (auto) 0.4 % (0.0-2.0); Eosinophils # (auto) 0.2 10 ^3/uL (0-0.8); Eosinophils % (auto) 3.9 % (0.0-7.0); Hematocrit 38.9 % (36.0-46.0); Hemoglobin 12.5 g/dL (12.2-16.2); Lymphocytes # (auto) 1.6 10 ^3/uL (0.4-5.4); Lymphocytes % (auto) 31.1 % (10.0-50.0); Mean Corpuscular Hemoglobin 27.1 pg (28.0-32.0); Mean Corpuscular Hgb Conc. 32.1 g/dL (32.0-36.0); Mean Corpuscular Volume 84.3 fL (80.0-100.0); Monocytes # (auto) 0.6 10 ^3/uL (0-1.3); Monocytes % (auto) 12.2 % (0.0-12.0); Neutrophils # (auto) 2.7 10 ^3/uL (1.6-8.6); Neutrophils % (auto) 52.4 % (37.0-80.0); Nucleated Red Blood Cells % 0.1 %; Platelet Count (auto) 284 10^3/uL (140-450); Red Blood Cells 4.61 10^6/uL (4.0-5.20); Red Cell Distribution Width 15.8 % (11.8-14.3); White Blood Cell 5.2 10^3/uL (4.4-10.8)
[2024-07-17 06:30] LABS: Alanine Aminotransferase 10 U/L (7-40); Alkaline Phosphatase 55 U/L (46-116); Anion Gap 10 (5-15); BUN/Creatinine Ratio 14.9 (10.0-20.0); Blood Urea Nitrogen 22 mg/dL (9-23); Calcium 9.5 mg/dL (8.7-10.4); Carbon Dioxide 26 mmol/L (20-31); Chloride 102 mmol/L (98-107); Glucose 93 mg/dL (74-106); Sodium 138 mmol/L (136-145); Total Protein 7.7 g/dL (5.7-8.2)
[2024-07-17 06:31] LABS: Albumin 4.3 g/dL (3.2-4.8); Bilirubin, Total 0.4 mg/dL (0.2-1.0)
[2024-07-17 06:35] LABS: Aspartate Aminotransferase 12 U/L (13-40); Potassium 3.5 mmol/L (3.5-5.1)
[2024-07-17 08:00] VITALS: PULSE 76; PULSE 87; RESP 20; O2SAT 96
[2024-07-17 08:30] VITALS: BP 99/54; PULSE 76; RESP 20; TEMP 98; O2SAT 96
[2024-07-17] MEDS: ASPirin 81 mg TAB PO SCH (09:32)
[2024-07-17] MEDS ORDERED: EMPA1TAB PO (10:09)
--- NOTE | 2024-07-17 10:14 | DVHDS2 ---
Discharge Summary Date of Admission Jul 14, 2024 at 18:25 Date of Discharge: Jul 17, 2024 Admitting Diagnosis Shortness of breath Wounds: None Labs/Diagnostic Data: Laboratory Results Test 07/17/24 05:22 07/15/24 04:36 07/14/24 12:39 07/14/24 11:58 White Blood Count 5.2 10^3/uL (4.4-10.8) Red Blood Count 4.61 10^6/uL (4.0-5.20) Hemoglobin 12.5 g/dL (12.2-16.2) Hematocrit 38.9 % (36.0-46.0) Mean Corpuscular Volume 84.3 fL (80.0-100.0) Mean Corpuscular Hemoglobin 27.1 pg (28.0-32.0) Mean Corpuscular Hemoglobin Concent 32.1 g/dL (32.0-36.0) Red Cell Distribution Width 15.8 % (11.8-14.3) Platelet Count 284 10^3/uL (140-450) Mean Platelet Volume 9.1 fL (6.9-10.8) Neutrophils (%) (Auto) 52.4 % (37.0-80.0) Lymphocytes (%) (Auto) 31.1 % (10.0-50.0) Monocytes (%) (Auto) 12.2 % (0.0-12.0) Eosinophils (%) (Auto) 3.9 % (0.0-7.0) Basophils (%) (Auto) 0.4 % (0.0-2.0) Neutrophils # (Auto) 2.7 10 ^3/uL (1.6-8.6) Lymphocytes # (Auto) 1.6 10 ^3/uL (0.4-5.4) Monocytes # (Auto) 0.6 10 ^3/uL (0-1.3) Eosinophils # (Auto) 0.2 10 ^3/uL (0-0.8) Basophils # (Auto) 0 10 ^3/uL (0-0.2) Nucleated Red Blood Cells 0.1 % Sodium Level 138 mmol/L (136-145) Potassium Level 3.5 mmol/L (3.5-5.1) Chloride Level 102 mmol/L (98-107) Carbon Dioxide Level 26 mmol/L (20-31) Anion Gap 10 (5-15) Blood Urea Nitrogen 22 mg/dL (9-23) Creatinine 1.48 mg/dL (0.550-1.02) Glomerular Filtration Rate Calc 42 mL/min (>90) BUN/Creatinine Ratio 14.9 (10.0-20.0) Serum Glucose 93 mg/dL (74-106) Calcium Level 9.5 mg/dL (8.7-10.4) Total Bilirubin 0.4 mg/dL (0.2-1.0) Aspartate Amino Transferase (AST) 12 U/L (13-40) Alanine Aminotransferase (ALT) 10 U/L (7-40) Alkaline Phosphatase 55 U/L (46-116) Total Protein 7.7 g/dL (5.7-8.2) Albumin 4.3 g/dL (3.2-4.8) Magnesium Level 2.3 mg/dL (1.6-2.6) B-Type Natriuretic Peptide 623.14 pg/mL (0-100) Urine Color Yellow (Yellow) Urine Clarity Turbid (Clear) Urine pH 6.0 (5.0-9.0) Urine Specific [place] 1.033 (1.001-1.035) Urine Protein 1+ (Negative) Urine Ketones Negative (Negative) Urine Blood Negative /uL (Negative) Urine Nitrite Negative (Negative) Urine Bilirubin Negative (Negative) Urine Urobilinogen Normal mg/dL (Negative) Urine Leukocyte Esterase Negative /uL (Negative) Urine RBC 6 /hpf (0 - 4) Urine Microscopic WBC 3 /HPF (0-5) Urine Squamous Epithelial Cells Few /hpf (<5) Urine Bacteria Few /hpf (None Seen) Urine Mucus Few (None Seen) Urine Glucose 2+ mg/dL (Normal) Other Laboratory Tests 07/17/24 05:22 Brief Hx & Hospital Course: 63-year-old female with a history of nonischemic cardiomyopathy acute on chronic decompensated heart failure with the ejection fraction 15 percent status post AICD hypertension hypercholesterolemia history of CVA morbid obesity came in for exacerbation of shortness of breaths. Seen by Cardiology Dr. Lowe. Placed on Jardiance Entresto Aldactone Coreg and Lasix no further cardiac workup patient feels better on room air no chest pain discharged home. Prescription for Entresto transmitted to the pharmacy. She was all other heart failure medications at home. She will Follow up with Dr. Lowe Consults/Reason for consult Cardiology Chrissy Operations or Procedures None Condition at Discharge: Fair Final Diagnosis/Problems List Acute on chronic decompensated HFrEF with LVEF of 15%, NYHA Class III, continue Jardiance Entresto Aldactone Coreg and Lasix, cardiology consult Dr. Lowe appreciated Nonischemic cardiomyopathy Presence of AICD (Medtronic, 2022) Hypertension Dyslipidemia Hx of CVAs Morbid obesity Discharge Disposition: Home Discharge Instruct/Medications Diet: Cardiac 2g Na,low cholest Activity: Light activity Follow Up/Referral: Resume all previous home medications Follow up with the electronic gluer Dr. Lowe Medications: Jardiance transmitted to the pharmacy 39 (Time taken for discharge summary 39 minutes) Discharge Statement: "Patient was advised to return to the ER or call 911 if any headaches, dizziness, shortness of breath, chest pain, abdominal pain, bleeding, fevers, or worsening of medical condition. Patient was counseled about treatment plan, medications, possible side effects, patientverbalized understanding. All questions were answered to the best of my ability. This discharge took greater then 30 minutes in planning, reviewing documentation, counseling the patient, and discussing with other team members." ASSESSMENT ASSESSMENT Hospital Course Improved marginally Assessment Acute on chronic decompensated HFrEF with LVEF of 15%, NYHA Class III, continue Jardiance Entresto Aldactone Coreg and Lasix, cardiology consult Dr. Lowe appreciated Nonischemic cardiomyopathy Presence of AICD (Medtronic, 2022) Hypertension Dyslipidemia Hx of CVAs Morbid obesity Date of Service: Jul 17, 2024 Billing Provider: CAYDEN APONTE MD Common Visit Codes: [id number] DISCH DAY >30min CAYDEN APONTE MD Jul 17, 2024 10:14
[2024-07-17 12:04] VITALS: BP 96/53; PULSE 92; RESP 14; TEMP 98; O2SAT 96
[2024-07-17 13:06] VITALS: BP 94/59; PULSE 87; RESP 18; TEMP 97.5; O2SAT 97
== END 2024-07-17 14:25 | disposition home health service (06) | DRG 194 ==
LOC: ER 11:35 → OVERFLOW 18:25 → TELE-EAST 07-15 16:42
PROVIDERS: ADMIT Family Medicine; ATTEND Family Medicine
DX: I11.0 Hypertensive heart disease with heart failure (principal); N17.0 Acute kidney failure with tubular necrosis; I42.8 Other cardiomyopathies; I50.23 Acute on chronic systolic (congestive) heart failure; E11.9 Type 2 diabetes mellitus without complications; E66.01 Morbid (severe) obesity due to excess calories; E78.00 Pure hypercholesterolemia, unspecified; J45.909 Unspecified asthma, uncomplicated; E78.5 Hyperlipidemia, unspecified; Z95.810 Presence of automatic (implantable) cardiac defibrillator; Z90.710 Acquired absence of both cervix and uterus; Z87.442 Personal history of urinary calculi; Z86.73 Personal history of transient ischemic attack (TIA), and cerebral infarction without residual deficits; Z79.84 Long term (current) use of oral hypoglycemic drugs; Z79.899 Other long term (current) drug therapy; Z88.2 Allergy status to sulfonamides; Z88.8 Allergy status to other drugs, medicaments and biological substances; Z68.41 Body mass index [BMI] 40.0-44.9, adult
CPT/HCPCS: 36415; 71045; 80048; 80053; 81001; 82962; 83735; 83880; 85025; 93005; 96374; 99291; G0378

== ENCOUNTER 2024-10-09 10:35 | Inpatient (IN) | payer MEDICAID ==
[~2024-10-09] VITALS: Ht 177.8 cm; Wt 129.6 kg
[~2024-10-09 10:35] MED LIST changes: +EMPA1TAB PO
--- NOTE | 2024-10-09 10:45 | ECG ---
[facility] Test Date: 2024-10-09 Test Time: 10:39:22 Pat Name: EULALIO DUVALL Department: ED Room: 0280T Gender: F Sap Bpc Developer: gp : [id number] Requested By: JENNIFER GILL Order Number: [id number] Reading MD: Jaxon Andrade Measurements Intervals [place] Rate: 113 P: 257 [place]: 106 QRS: 29 QRSD: 108 T: 60 QT: 450 QTc: 618 Interpretive Statements Sinus or ectopic atrial tachycardia Incomplete left bundle branch block Prolonged QT interval Baseline wander in lead(s) V5,V6 Electronically Signed On 10-12-2024 18:57:23 PDT by Jaxon Andrade Please click the below link to view image of tracing.
--- NOTE | 2024-10-09 11:06 | ED.PDOC ---
Altered Mental Status HPI Comments 53 y.o female with PMHx of CHF with EJ of 15%, HTN, DM, HLD, CVA X2, PR X2, CKD, and asthma, presents to the ED via EMS for an evaluation of a syncopal episode. EMS reports per family on scene, witness patient lose consciousness for a couple of seconds and state they were able to assist her down. Patient reports sitting on a chair, felt her pacemaker shock her and then is unable to recall further events. Patient had similar episode back in January of 2024 where the pacemaker shocked her and then lost consciousness. Patient at this time denies any dizziness, chest pain, fever, chills, nausea or vomiting. Patient does mention increased leg swelling with SOB upon ED arrival. Chief Complaint: Syncope Time Seen by MD: 10:33 Primary Care Provider: INGRID Qureshi Notes: Nurses Notes, Coordinator Of Placement Notes, Medications, Allergies Allergies: Coded Allergies: Naproxen (Verified Allergy, Unknown, 03/31/19) Sulfa Drugs (Verified Allergy, Unknown, 03/31/19) Uncoded Allergies: TAPE (Allergy, Unknown, 10/09/24) Home Meds Active Scripts Empagliflozin (Jardiance) 10 Mg Tab, 10 MG PO DAILY, #30 TAB Prov:CAYDEN APONTE MD 07/17/24 Ondansetron (Zofran) 4 Mg Tab, 1 TAB PO BID, #20 TAB Prov:BERTHA ELMORE 10/29/21 Reported Medications Furosemide (Lasix) 20 Mg Tb, 10 DAILY 01/10/10 Albuterol Sulfate (Albuterol Sulfate) 0.5 % Neb 01/10/10 Information Source: Patient, Emergency Med Personnel Mode of Arrival: EMS Severity: Moderate Timing: Hours Duration: Since onset Prehospital treatment: 12 Lead EKG, Commodity Broker Quality: Decreased Alertness Recent: None History of: Diabetes Associated Signs and Symptoms: Other Past Medical History PAST MEDICAL HISTORY: Asthma, Cancer, CHF, DM, High Lipids, HTN, Kidney Stones Surgical History: , Hysterectomy, Pacemaker SONG WRITER History: Denies all SONG WRITER Hx Family History Family History: Reviewed,noncontributory to illness, Unknown Social History Smoker: Non-Smoker Alcohol: Unknown Drugs: Denies Drug Use Lives In: Home Constitutional: denies: chills, diaphoresis, fatigue, fever, malaise, sweats, weakness, others EENTM: denies: blurred vision, double vision, ear bleeding, ear discharge, ear drainage, ear pain, ear ringing, eye pain, eye redness, hearing loss, mouth pain, mouth swelling, nasal discharge, nose bleeding, nose congestion, nose pain, photophobia, tearing, throat pain, throat swelling, voice changes, others Respiratory: reports: SOB at rest, shortness of breath; denies: cough, hemoptysis, orthopnea, SOB with excertion, stridor, wheezing, others Cardiovascular: denies: chest pain, dizzy spells, diaphoresis, Dyspnea on exertion, edema, irregular heart beat, left arm pain, lightheadedness, palpitations, PND, syncope, others Gastrointestinal: denies: abdomen distended, abdominal pain, blood streaked bowels, constipated, diarrhea, dysphagia, difficulty swallowing, hematemesis, melena, nausea, poor appetite, poor fluid intake, rectal bleeding, rectal pain, vomiting, others Genitourinary: denies: abnormal vagina bleeding, burning, dyspareunia, dysuria, flank pain, frequency, hematuria, incontinence, pain, , vagina discharge, urgency, others Neurological: denies: dizziness, fainting, headache, left sided numbness, left sided weakness, numbness, paresthesia, pre-existing deficit, right sided numbness, right sided weakness, seizure, speech problems, tingling, tremors, weakness, others Musculoskeletal: reports: others (lower extremity swelling ); denies: back pain, gout, joint pain, joint swelling, muscle pain, muscle stiffness, neck pain Integumetry: denies: bruises, change in color, change in hair/nails, dryness, laceration, lesions, lumps, rash, wounds, others Allergic/Immunocompromised: denies: Difficulty Healing, Frequent Infections, Hives, Itching, others Hematologic/Lymphatic: denies: anemia, blood clots, easy bleeding, easy bruising, swollen glands, others Endocrine: denies: excessive hunger, excessive sweating, excessive thirst, excessive urination, flushing, intolerance to cold, intolerance to heat, unexplained weight gain, unexplained weight loss, others Psychiatric: denies: anxiety, bipolar disorder, depression, hopeless, panic disorder, schizophrenia, sleepless, suicidal, others All Other Systems: Reviewed and Negative Physical Exam General Appearance: Moderate Distress HEENT: Normal ENT Inspection, Pharynx Normal, TMs Normal Neck: Full Range of Motion, Non-Tender, Normal, Normal Inspection Respiratory: Chest Non-Tender, Lungs Clear, No Accessory Muscle Use, No Respiratory Distress, Normal Breath Sounds Cardiovascular: No Edema, No JVD, No Murmur, No Gallop, Tachycardia Breast Exam: Deferred Gastrointestinal: No Organomegaly, Non Tender, No Pulsatile Mass, Normal Bowel Sounds, Soft Genitalia: Deferred Pelvic: Deferred Rectal: Deferred Extremities: No calf tenderness, Normal capillary refill, Normal inspection, Normal range of motion, Non-tender, No pedal edema Musculoskeletal : Apperance: Normal Neurologic: Alert, rock wool applicator II-XII nml as Tested, No Motor Deficits, Normal Affect, Normal Mood, No Sensory Deficits Cerebellar Function: Normal Reflexes: Normal Skin: Dry, Normal Color, Warm Lymphatic: No Adenopathy EKG EKG : Pulse Rate (adult): 113 Cardiac Rhythm: ST Was a procedure done? Was a procedure done?: No Differential Diagnosis (ALOC) Differential Diagnosis: Dehydration, Hypoxemia, Seizure X-Ray, Labs, Meds, VS Vital Signs Date Time Temp Pulse Resp B/P (MAP) Pulse Ox O2 Delivery O2 Flow Rate FiO2 10/09/24 12:20 96 16 100 Room Air 10/09/24 12:20 97.7 96 16 121/69 (86) 97 97.7 10/09/24 11:47 103 10/09/24 11:06 113 10/09/24 10:39 98.4 104 18 127/80 (96) 97 98.4 10/09/24 10:39 113 Lab Test 10/09/24 13:40 10/09/24 12:35 Range/Units Troponin I High Sensitivity Pending 183 *H </=34 ng/L White Blood Count 4.9 4.4-10.8 10^3/uL Red Blood Count 4.37 4.0-5.20 10^6/uL Hemoglobin 12.0 L 12.2-16.2 g/dL Hematocrit 37.3 36.0-46.0 % Mean Corpuscular Volume 85.2 80.0-100.0 fL Mean Corpuscular Hemoglobin 27.5 L 28.0-32.0 pg Mean Corpuscular Hemoglobin Concent 32.3 32.0-36.0 g/dL Red Cell Distribution Width 15.7 H 11.8-14.3 % Platelet Count 272 140-450 10^3/uL Mean Platelet Volume 8.9 6.9-10.8 fL Neutrophils (%) (Auto) 61.8 37.0-80.0 % Lymphocytes (%) (Auto) 25.8 10.0-50.0 % Monocytes (%) (Auto) 9.0 0.0-12.0 % Eosinophils (%) (Auto) 2.9 0.0-7.0 % Basophils (%) (Auto) 0.5 0.0-2.0 % Neutrophils # (Auto) 3.0 1.6-8.6 10 ^3/uL Lymphocytes # (Auto) 1.3 0.4-5.4 10 ^3/uL Monocytes # (Auto) 0.4 0-1.3 10 ^3/uL Eosinophils # (Auto) 0.1 0-0.8 10 ^3/uL Basophils # (Auto) 0 0-0.2 10 ^3/uL Nucleated Red Blood Cells 0.0 % Sodium Level 141 136-145 mmol/L Potassium Level 4.6 3.5-5.1 mmol/L Chloride Level 110 H 98-107 mmol/L Carbon Dioxide Level 23 20-31 mmol/L Anion Gap 8 5-15 Blood Urea Nitrogen 13 9-23 mg/dL Creatinine 1.18 H 0.550-1.02 mg/dL Glomerular Filtration Rate Calc 55 >90 mL/min BUN/Creatinine Ratio 11.0 10.0-20.0 Serum Glucose 97 74-106 mg/dL Calcium Level 9.5 8.7-10.4 mg/dL Magnesium Level 2.1 1.6-2.6 mg/dL B-Type Natriuretic Peptide 999.99 0-100 pg/mL CHEST RADIOGRAPH IMPRESSION: Mild congestive heart failure. The patient's CBC is within normal limits The chemistry panel is within normal limits except for creatinine of 1.18 The patient's BNP is elevated at 999.99 The patient's 1st troponin level came back elevated at 183 A D-dimer was added The patient is being started on a heparin drip. The patient is getting a CAT scan of the chest to rule out PE. The patient understands and agrees with the management Images Reviewed?: Images reviewed and evaluated by me Time of 1ST Reevaluation: 11:06 Reevaluation 1ST: Unchanged Patient Education/Counseling: Diagnosis, Treatment, Prognosis Family Education/Counseling: No Family Present SEPSIS Sepsis Screen Date sepsis recognized/suspect: Oct 09, 2024 Time Sepsis recognized/suspect: 1039 Recent Procedure: No On Antibiotic Therapy: No Respiratory Rate >20: No Heart Rate >90: Yes Temp<36 C (96.8 F) or >38.3 C: No SBP <90 or MAP <65 mmHG: No New Acute Mental Status Change: No Is the patient on CPAP, BIPAP,: No Physician Orders Electrocardigram (10/09/24 13:44) Chest Portable (10/09/24 10:49) Heplock Iv (10/09/24 10:49) Commodity Broker (10/09/24 10:49) Blood Pressure (10/09/24 10:49) Pulse Oximetry (10/09/24 10:49) Urinalysis (10/09/24 10:49) Troponin-I Hs (10/09/24 11:49) Troponin-I Hs (10/09/24 13:49) Heparin Sodium (Porcine) (10/09/24 14:00) Aspirin Tablet (10/11/24 10:00) Heparin Drip/D5w 100units/Ml (10/09/24 14:00) Echo 2d Mode Cardiac Dop (10/09/24 13:56) D-Dimer (10/09/24 13:58) Vital Signs Date Time Temp Pulse Resp B/P (MAP) Pulse Ox O2 Delivery O2 Flow Rate FiO2 10/09/24 12:20 96 16 100 Room Air 10/09/24 12:20 97.7 96 16 121/69 (86) 97 97.7 10/09/24 11:47 103 10/09/24 11:06 113 10/09/24 10:39 98.4 104 18 127/80 (96) 97 98.4 10/09/24 10:39 113 Laboratory Tests Test 10/09/24 12:35 White Blood Count 4.9 10^3/uL (4.4-10.8) Departure 1 Departure Time of Disposition: 14:02 Impression: Primary Impression: Acute chest pain Additional Impressions: Elevated troponin level Elevated brain natriuretic peptide (BNP) level Autonomic dysfunction Disposition: 09 ADMITTED INPATIENT Admit to: Tele Condition: Fair Critical Care Note Critical Care Time?: Yes (45 min-critical care time only) Stability Stability form required: Yes Unstable for transfer: Telemetry monitoring (Telemetry monitoring required), ED Physician Assesment (Clinical assesment) Heart Score Heart Score: Heart Score Response (Comments) Value History Slightly Suspicious 0 EKG Repolarization Disturb 1 Age 45-64 1 Risk Factors >3 or Hx ASHD 2 Troponin >3 x's Normal limit 2 Total 6 I personally scribed for JENNIFER GILL MD ([email or web address]) on 10/09/24 at 11:06. Electronically submitted by Lora Urias ([employer]). I personally scribed for JENNIFER GILL MD ([email or web address]) on 10/09/24 at 12:01. Electronically submitted by Lora Urias ([employer]). JENNIFER GILL MD Oct 09, 2024 11:06
--- NOTE | 2024-10-09 11:24 | DVH ---
CHEST RADIOGRAPH Indication: syncope Technique: Frontal view of the chest. Comparison: XY CHEST PORTABLE on DOS: 07/15/24, XY CHEST PORTABLE on DOS: 07/15/24 FINDINGS: LUNGS AND PLEURAL SPACES: Mild congestive heart failure. No consolidation. No pneumothorax. HEART: Unremarkable. No cardiomegaly. MEDIASTINUM: Unremarkable. Normal mediastinal contour. BONES/JOINTS: Unremarkable. No acute fracture. TUBES, LINES AND DEVICES: Left-sided cardiac pacemaker. IMPRESSION: Mild congestive heart failure.
--- NOTE | 2024-10-09 11:48 | ECG ---
[facility] Test Date: 2024-10-09 Test Time: 11:47:47 Pat Name: EULALIO DUVALL Department: ED Room: 0280T Gender: F Medical Staff Assistant: gp : 1970 Requested By: JENNIFER GILL Order Number: [id number] Reading MD: Jaxon Andrade Measurements Intervals Saxon Rate: 103 P: 63 MO: 175 QRS: 20 QRSD: 94 T: 135 QT: 384 QTc: 503 Interpretive Statements Sinus tachycardia LAE, consider biatrial enlargement Nonspecific T abnormalities, lateral leads Borderline prolonged QT interval Baseline wander in lead(s) V6 Electronically Signed On 10-12-2024 18:57:31 PDT by Jaxon Andrade Please click the below link to view image of tracing.
[2024-10-09 13:00] LABS: Hematocrit 37.3 % (36.0-46.0); Hemoglobin 12.0 g/dL (12.2-16.2); Mean Corpuscular Hemoglobin 27.5 pg (28.0-32.0); Mean Corpuscular Volume 85.2 fL (80.0-100.0); Nucleated Red Blood Cells % 0.0 %
[2024-10-09 13:09] LABS: Potassium 4.6 mmol/L (3.5-5.1); Sodium 141 mmol/L (136-145)
[2024-10-09 13:10] LABS: Anion Gap 8 (5-15); Calcium 9.5 mg/dL (8.7-10.4); Carbon Dioxide 23 mmol/L (20-31)
[2024-10-09 13:15] LABS: BUN/Creatinine Ratio 11.0 (10.0-20.0); Blood Urea Nitrogen 13 mg/dL (9-23); Glucose 97 mg/dL (74-106); Magnesium 2.1 mg/dL (1.6-2.6)
[2024-10-09 13:16] LABS: Chloride 110 mmol/L (98-107)
--- NOTE | 2024-10-09 15:17 | DVH ---
CTA Chest with intravenous contrast INDICATION: cp COMPARISON: None TECHNIQUE: Multidetector spiral CTA of the chest was performed of the chest with intravenous contrast . PULMONARY ANGIOGRAPHY PROTOCOL was utilized using a bolus-tracking technique centered on the main p ulmonary artery. Axial, coronal and sagittal multiplanar and MIP reformats were performed. CONTRAST: Type of contrast: Omni 300 Contrast injected: 80 ml Radiation dose : Chest: CTDI volume is 29.2 mGy. Dose-length product is 947.45 mGy*cm The dose indicators for CT are the volume computed Tomography (CT) dose Index (CTDIvol) and the dose Length product (DLP), and are measured in units of mGy and mGy-cm, respectively. These indicators are not patient dose, but values generated from the CT scanner acquisition factors. The report includes radiation exposure data for exposures received during this examination. Findings: Pulmonary artery: No pulmonary embolism Lower neck: Obscured by metallic artifact. Lungs: Patchy ground-glass opacities in both lungs. Atelectasis and consolidation in the lung bases left greater than right. Heart/Vascular Structures: Moderate cardiomegaly. Lymph Nodes: Mediastinal and hilar lymphadenopathy. Pleura: No pleural effusion or significant pneumothorax. Musculoskeletal: No acute osseous abnormality. Soft tissues: Normal. Upper abdomen: Limited portions of the upper abdomen are unremarkable. IMPRESSION: 1. No pulmonary embolism. 2. Patchy ground-glass opacities in both lungs. Atelectasis and consolidation in the lung bases left greater than right. Mediastinal and hilar lymphadenopathy. Clinical correlation and continued follow -up is recommended. 3. Moderate cardiomegaly. HS:Y
[2024-10-09] MEDS: IOHEXOL 300 MG/ML 100ML BOTTLE IJ ONE (15:21)
[2024-10-09] MEDS ORDERED: DOCUSATE SOD 100 MG CAP PO PRN (15:30)
[2024-10-09] MEDS ORDERED: ONDANSETRON HCL 4 MG/2 ML VIAL IV PRN (15:30)
[2024-10-09] MEDS ORDERED: ACETAMINOPHEN 325 MG TAB PO PRN (15:30)
[2024-10-09] MEDS ORDERED: HYDROcodone-ACET 5/325MG TAB PO PRN (15:30)
[2024-10-09] MEDS ORDERED: DEXTROSE (50%) 50ML SYRG IV PRN (15:30)
[2024-10-09 15:45] VITALS: O2SAT 95
[2024-10-09] MEDS: HEPARIN DRIP/D5W 100UNITS/ML 250 ML IV SCH (16:11)
[2024-10-09] MEDS: HEPARIN SODIUM (PORCINE) 5000 UNITS/ML 1ML VIAL IV ONE (16:11)
[2024-10-09 16:26] LABS: INR 1.06 (0.9-1.15); Partial Thromboplastin Time 31.1 SEC (24.5-34.5); Prothrombin Time 11.2 sec (9.3-11.8)
[2024-10-09] MEDS: FUROSEMIDE 40 MG/4 ML VIAL IV ONE (16:31)
--- NOTE | 2024-10-09 16:48 | DVHHP2 ---
History of Present Illness Reason for Visit: Acute exacerbation of congestive heart failure History of Present Illness The patient is a 53-year-old female with multiple past medical history including CHF, DM, hyperlipidemia, and hypertension who presented to [facility] ED for evaluation of syncopal episode. As reported by family, patient had loss of consciousness for a couple of seconds and was able to assist her down to the floor. Patient reports sitting on a chair, felt her pacemaker shock her and then was unable to recall further events. Patient had similar episode in January of 2024 where the pacemaker shocked her and then lost consciousness. Patient was seen and evaluated in the ED, laboratory data shows WBC 4.9, platelets 272, sodium 141, potassium 4.6, BUN 13, creatinine 1.18, glucose 97, calcium 9.5, BNP 999.99, troponin 192, blood pressure 121/69, heart rate 96, temperature 97.7 F, O2 saturation 97% on oxygen. Chest x-ray revealing mild congestive heart failure. Patient was started on IV Lasix, please see medication orders section in the computer. On my assessment, patient denied chest pain, no headache, no dizziness, currently on oxygen, no nausea, no vomiting, no fever, no chills. Patient was admitted for further evaluation and medical management. Past Medical History Asthma, Cancer, CHF, DM, High Lipids, HTN, Kidney Stones Past Surgical History , Hysterectomy, Pacemaker Family History Reviewed, noncontributory to the management of this case. Past Social History The patient lives at home, denies smoking, alcohol or illicit drugs abuse. Review of Systems Constitutional: No: Fever, Chills, Sweats, Weakness, Malaise, Other Eyes: No: Pain, Vision change, Conjunctivae inflammation, Eyelid inflammation, Other, Redness ENT: No: Ear pain, Ear discharge, Nose pain, Nose discharge, Nose congestion, Mouth pain, Mouth swelling, Throat pain, Throat swelling, Other Respiratory: Shortness of breath, Other (SOB at rest); No: Cough, Dry, SOB with excertion, Wheezing, Hemoptysis, Pleuritic Pain, Sputum, Wheezing Cardiovascular: No: Chest Pain, Palpitations, Orthopnea, Paroxysmal Noc. Dyspnea, Edema, Lt Headedness, Other Gastrointestinal: No: Nausea, Vomiting, Abdominal Pain, Diarrhea, Constipation, Melena, Hematochezia, Other Genitourinary: No Dysuria, No Frequency, No Incontinence, No Hematuria, No Retention, No Other Musculoskeletal: other (lower extremity swelling ); No: neck pain, shoulder pain, arm pain, back pain, hand pain, leg pain, foot pain Skin: No: Rash, Lesions, Jaundice, Bruising, Other Neurological: No: Weakness, Numbness, Incoordination, Change in speech, Confusion, Seizures, Other Allergies: Coded Allergies: Naproxen (Verified Allergy, Unknown, 03/31/19) Sulfa Drugs (Verified Allergy, Unknown, 03/31/19) Uncoded Allergies: TAPE (Allergy, Unknown, 10/09/24) Medications Current Medications Medications Dose Ordered Sig/Tavia Route Start Time Stop Time Status Last Admin Dose Admin Heparin Sodium/ Dextrose 250 ml @ 10 mls/hr Q24H IV 10/09/24 14:00 Aspirin 81 mg DAILY PO 10/10/24 10:00 Furosemide 40 mg DAILY IV 10/10/24 10:00 Carvedilol 12.5 mg Q12HR PO 10/09/24 22:00 Atorvastatin Calcium 20 mg HS PO 10/09/24 22:00 Levalbuterol HCl 0.625 mg Q6HR NEB 10/09/24 18:00 Diagnostic Test (Pha) 1 strip ACHS 10/09/24 17:00 Insulin Human Regular ACHS SC 10/09/24 17:00 Dextrose 50 ml UD PRN IV 10/09/24 15:30 Sodium Chloride 10 ml Q8HR IV 10/09/24 22:00 Acetaminophen/ Hydrocodone Bitart 1 tab Q4HP PRN PO 10/09/24 15:30 Ondansetron HCl 4 mg Q4HP PRN IV 10/09/24 15:30 Docusate Sodium 100 mg BIDPRN PRN PO 10/09/24 15:30 Acetaminophen 650 mg Q6HP PRN PO 10/09/24 15:30 Exam Vital Signs Vital Signs Date Time Temp Pulse Resp B/P (MAP) Pulse Ox O2 Delivery O2 Flow Rate FiO2 10/09/24 12:20 96 16 100 Room Air 10/09/24 12:20 97.7 121/69 (86) 97.7 General Appearance: Alert, Oriented X3, Cooperative, No acute distress HEENT: Atraumatic, PERRLA, EOMI, Mucous membr. moist/pink Respiratory: Normal air movement, Other (Currently on oxygen) Cardiovascular: Regular rate, Normal S1, Normal S2, No murmurs Abdominal: Normal bowel sounds, Soft, No tenderness, No hepatospenomegaly, No masses Extremities: No clubbing, No cyanosis, No edema, Normal pulses, No tenderness/swelling Skin: No rashes, No significant lesion Neuro: Normal gait, Normal speech, Strength at 5/5 X4 ext, Normal tone, Sensation intact, Cranial nerves 3-12 NL, Reflexes 2+ Psych/Mental Status: Mental status NL, Mood NL Labs/Xrays Labs Test 10/09/24 15:52 10/09/24 12:35 Range/Units Prothrombin Time 11.2 9.3-11.8 sec Prothrombin Time INR 1.06 0.9-1.15 Activated Partial Thromboplast Time 31.1 24.5-34.5 SEC D-Dimer, Quantitative 0.35 0.0-0.49 mg/L FEU Troponin I High Sensitivity 214 *H </=34 ng/L White Blood Count 4.9 4.4-10.8 10^3/uL Red Blood Count 4.37 4.0-5.20 10^6/uL Hemoglobin 12.0 L 12.2-16.2 g/dL Hematocrit 37.3 36.0-46.0 % Mean Corpuscular Volume 85.2 80.0-100.0 fL Mean Corpuscular Hemoglobin 27.5 L 28.0-32.0 pg Mean Corpuscular Hemoglobin Concent 32.3 32.0-36.0 g/dL Red Cell Distribution Width 15.7 H 11.8-14.3 % Platelet Count 272 140-450 10^3/uL Mean Platelet Volume 8.9 6.9-10.8 fL Neutrophils (%) (Auto) 61.8 37.0-80.0 % Lymphocytes (%) (Auto) 25.8 10.0-50.0 % Monocytes (%) (Auto) 9.0 0.0-12.0 % Eosinophils (%) (Auto) 2.9 0.0-7.0 % Basophils (%) (Auto) 0.5 0.0-2.0 % Neutrophils # (Auto) 3.0 1.6-8.6 10 ^3/uL Lymphocytes # (Auto) 1.3 0.4-5.4 10 ^3/uL Monocytes # (Auto) 0.4 0-1.3 10 ^3/uL Eosinophils # (Auto) 0.1 0-0.8 10 ^3/uL Basophils # (Auto) 0 0-0.2 10 ^3/uL Nucleated Red Blood Cells 0.0 % Sodium Level 141 136-145 mmol/L Potassium Level 4.6 3.5-5.1 mmol/L Chloride Level 110 H 98-107 mmol/L Carbon Dioxide Level 23 20-31 mmol/L Anion Gap 8 5-15 Blood Urea Nitrogen 13 9-23 mg/dL Creatinine 1.18 H 0.550-1.02 mg/dL Glomerular Filtration Rate Calc 55 >90 mL/min BUN/Creatinine Ratio 11.0 10.0-20.0 Serum Glucose 97 74-106 mg/dL Calcium Level 9.5 8.7-10.4 mg/dL Magnesium Level 2.1 1.6-2.6 mg/dL B-Type Natriuretic Peptide 999.99 0-100 pg/mL PATIENT: EULALIO DUVALL ACCT: [id number] UNIT: [id number] : 1970 LOC: ER ROOM / BED: / AGE / SEX: 53 / F ADM STATUS: REG ER SERVICE 1400 ORDERING PHYSICIAN: JENNIFER GILL MD PROCEDURE(s): CTACH - CT ANGIO CHEST CONTRAST REASON: cp ORDER NUMBER(s): [id number], ACCESSION NUMBER(s): [id number] CTA Chest with intravenous contrast INDICATION: cp COMPARISON: None TECHNIQUE: Multidetector spiral CTA of the chest was performed of the chest with intravenous contrast. PULMONARY ANGIOGRAPHY PROTOCOL was utilized using a bolus- tracking technique centered on the main pulmonary artery. Axial, coronal and sagittal multiplanar and MIP reformats were performed. CONTRAST: Type of contrast: Omni 300 Contrast injected: 80 ml Radiation dose: Chest: CTDI volume is 29.2 mGy. Dose-length product is 947.45 mGy*cm The dose indicators for CT are the volume computed Tomography (CT) dose Index (CTDIvol) and the dose Length product (DLP), and are measured in units of mGy and mGy-cm, respectively. These indicators are not patient dose, but values generated from the CT scanner acquisition factors. The report includes radiation exposure data for exposures received during this examination. Findings: Pulmonary artery: No pulmonary embolism Lower neck: Obscured by metallic artifact. Lungs: Patchy ground-glass opacities in both lungs. Atelectasis and consolidation in the lung bases left greater than right. Heart/Vascular Structures: Moderate cardiomegaly. Lymph Nodes: Mediastinal and hilar lymphadenopathy. Pleura: No pleural effusion or significant pneumothorax. Musculoskeletal: No acute osseous abnormality. Soft tissues: Normal. Upper abdomen: Limited portions of the upper abdomen are unremarkable. IMPRESSION: 1. No pulmonary embolism. 2. Patchy ground-glass opacities in both lungs. Atelectasis and consolidation in the lung bases left greater than right. Mediastinal and hilar lymphadenopathy. Clinical correlation and continued follow-up is recommended. 3. Moderate cardiomegaly. ORDERING PHYSICIAN: JENNIFER GILL MD PROCEDURE(s): CXRP - CHEST PORTABLE REASON: syncope ORDER NUMBER(s): [id number], ACCESSION NUMBER(s): [id number] CHEST RADIOGRAPH Indication: syncope Technique: Frontal view of the chest. Comparison: XY CHEST PORTABLE on DOS: 07/15/24, XY CHEST PORTABLE on DOS: 07/15/24 FINDINGS: LUNGS AND PLEURAL SPACES: Mild congestive heart failure. No consolidation. No pneumothorax. HEART: Unremarkable. No cardiomegaly. MEDIASTINUM: Unremarkable. Normal mediastinal contour. BONES/JOINTS: Unremarkable. No acute fracture. TUBES, LINES AND DEVICES: Left-sided cardiac pacemaker. IMPRESSION: Mild congestive heart failure. Assessment/Plan Assessment/Plan Acute chest pain Autonomic dysfunction Elevated troponin level Acute exacerbation of congestive heart failure Plan 1. Admit to telemetry unit 2. Breathing treatment 3. Pain control management 4. Management of fluids and electrolytes 5. Consultation for Cardiology 6. Diagnostic tests chest x-ray 7. DVT prophylaxis-on aspirin 8. Repeat labs CBC, CMP in a.m. 9. Continue with current medical management 10. Treatment plan discussed with patient and RN. Patient verbalized understanding. Plan discussed with: Patient, Other (RN) My Orders Orders - JAMES JEFFERY DNP Procedure Category Date Status Time Aspirin Tablet PHA 10/10/24 In Process 10:00 Furosemide Injection PHA 10/10/24 In Process (Lasix Injection) 10:00 Carvedilol Tablet PHA 10/09/24 In Process (Coreg Tablet) 22:00 Atorvastatin (Lipitor) PHA 10/09/24 In Process 22:00 Consistent DIET 10/09/24 Transmitted Carb(Ccho)Diabetes Dinner Levalbuterol Hcl PHA 10/09/24 In Process (Xopenex Medneb) 18:00 * Cardiology Consult CONS 10/09/24 Transmitted 15:17 Glucose Blood PHA 10/09/24 In Process (Accu-Chek Comfort 17:00 Insulin R (Human) PHA 10/09/24 In Process (Insulin R) 17:00 Dextrose 50% Syringe PHA 10/09/24 In Process 15:30 Allergies MENDEZ 10/09/24 In Process 15:17 Code Status CODE 10/09/24 Transmitted 15:17 Sodium Chloride Lock PHA 10/09/24 In Process (Saline Lock Ns) 22:00 Oxygen Per Hour RT 10/09/24 Transmitted 15:17 Hydrocodone-Acet PHA 10/09/24 In Process 5/325mg Tab ([place] 15:30 Ondansetron Hcl PHA 10/09/24 In Process (Zofran) 15:30 Docusate Sodium PHA 10/09/24 In Process Capsule (Colace 15:30 Complete Blood Count LAB 10/10/24 Verified 04:00 Comprehensive LAB 10/10/24 Verified Metabolic Panel 04:00 Condition: Serious MENDEZ 10/09/24 In Process 15:17 Acetaminophen Tablet PHA 10/09/24 In Process (Tylenol Tablet) 15:30 Bedrest With Bathroom MENDEZ 10/09/24 In Process Privileg 15:17 Sequential MENDEZ 10/09/24 In Process Compression Device Problem List: (1) Acute chest pain (2) Autonomic dysfunction (3) Elevated troponin level (4) Acute exacerbation of congestive heart failure Date of Service: Oct 09, 2024 Billing Provider: JAMES JEFFERY DNP Common Visit Codes: [id number] INP/OBS CARE (HIGH) JAMES JEFFERY DNP Oct 09, 2024 16:48
[2024-10-09] MEDS ORDERED: NITROGLYCERIN 0.4 MG SL TAB SL PRN (17:00)
[2024-10-09] MEDS: InsuLIN REG 1unit/0.01ml Soln (100units/ml) SC SCH (17:00)
[2024-10-09] MEDS ORDERED: MORPHINE SULFATE INJ 2 MG/ml SYRG IV PRN (17:00)
[2024-10-09] MEDS: ACCU-CHEK COMFORT CURVE STRIP VI SCH (17:02)
--- NOTE | 2024-10-09 17:04 | DVHCONRES ---
Date Seen: Oct 09, 2024 Resident Creating Document: PEGGY GONZALEZ RESDIENT History of Present Illness This is a 52-year-old female with past medical history of HFrEF (EF 15%), hy pertension, dyslipidemia, diabetes, CVA, CKD, asthma, status post AICD came to the hospital due to loss of consciousness. Per patient, she was sitting on the couch when she felt dizzy, blurry vision and subsequently lost consciousness. Upon waking lung the patient was disoriented for about 1 minute and she was feeling dizzy and mild chest discomfort. She denies shortness of breaths, palpitation, fever, cough, wheeze or any recent sick contact. PMHx: HFrEF (EF 15%), hypertension, dyslipidemia, diabetes, CVA, CKD, asthma, status post AICD Family history: Patient reports strong history of heart disease at family Social history: Denies smoking, alcohol or any drug use Home medication: Lasix 40 mg b.i.d., aspirin, atorvastatin, Entresto, carvedilol, gabapentin, vasovagal, Jardiance, on amiodarone Allergic history: Naproxen, sulfa drugs and tape Patient seen and examined at bedside. Patient is feeling better since admission. The patient is still complaining of dizziness. Allergies: Coded Allergies: Naproxen (Verified Allergy, Unknown, 03/31/19) Sulfa Drugs (Verified Allergy, Unknown, 03/31/19) Uncoded Allergies: TAPE (Allergy, Unknown, 10/09/24) Home Meds Active Scripts Empagliflozin (Jardiance) 10 Mg Tab, 10 MG PO DAILY, #30 TAB Prov:CAYDEN APONTE MD 07/17/24 Ondansetron (Zofran) 4 Mg Tab, 1 TAB PO BID, #20 TAB Prov:BERTHA ELMORE 10/29/21 Reported Medications Furosemide (Lasix) 20 Mg Tb, 10 DAILY 01/10/10 Albuterol Sulfate (Albuterol Sulfate) 0.5 % Neb 01/10/10 Current Medications Current Medications Medications (Trade) Dose Ordered Sig/Tavia Route PRN Reason Start Time Stop Time Status Last Admin Aspirin 81 mg DAILY PO 10/11/24 10:00 10/09/24 15:39 DC Heparin Sodium/ Dextrose 250 ml @ 10 mls/hr Q24H IV 10/09/24 14:00 Aspirin 81 mg DAILY PO 10/10/24 10:00 Furosemide (Lasix Injection) 40 mg DAILY IV 10/10/24 10:00 Carvedilol (Coreg Tablet) 12.5 mg Q12HR PO 10/09/24 22:00 Atorvastatin Calcium (Lipitor) 20 mg HS PO 10/09/24 22:00 Levalbuterol HCl (Xopenex Medneb) 0.625 mg Q6HR NEB 10/09/24 18:00 Diagnostic Test (Pha) (Accu-Chek Comfort Curve T) 1 strip ACHS 10/09/24 17:00 Insulin Human Regular (InsuLIN R) ACHS SC 10/09/24 17:00 Dextrose 50 ml UD PRN IV Blood Sugar LESS THAN 60 10/09/24 15:30 Sodium Chloride (Saline Lock Ns) 10 ml Q8HR IV 10/09/24 22:00 Acetaminophen/ Hydrocodone Bitart (Swatara 5/325MG Tab) 1 tab Q4HP PRN PO MODERATE PAIN (4-6 PAIN SCALE) 10/09/24 15:30 Ondansetron HCl (Zofran) 4 mg Q4HP PRN IV NAUSEA / VOMITING 10/09/24 15:30 Docusate Sodium (Colace Capsule) 100 mg BIDPRN PRN PO FOR CONSTIPATION 10/09/24 15:30 Acetaminophen (Tylenol Tablet) 650 mg Q6HP PRN PO PAIN SCALE 1-3 OR TEMP>100.4 10/09/24 15:30 Nitroglycerin (Ntrostat Sublingual) 0.4 mg Q5MINP PRN SL FOR CHEST PAIN 10/09/24 17:00 Morphine Sulfate 2 mg Q30M PRN IV FOR CHEST PAIN 10/09/24 17:00 Vital Signs Vital Signs Date Time Temp Pulse Resp B/P (MAP) Pulse Ox O2 Delivery O2 Flow Rate FiO2 10/09/24 12:20 96 16 100 Room Air 10/09/24 12:20 97.7 121/69 (86) 97.7 Physical Exam General Appearance: Alert, Oriented X3, Cooperative, No acute distress HEENT: Atraumatic, PERRLA, EOMI, Mucous membrane moist/pink Respiratory: Bilateral mild crackles Cardiovascular: Regular rate, Normal S1, Normal S2, No murmurs, no chest wall tenderness Abdominal: Normal bowel sounds, Soft, No tenderness, No hepatospenomegaly, No masses Extremities: Bilateral grade 1-2 pitting edema Skin: No rashes, No breakdown, No significant lesion Neuro: Normal gait, Normal speech, Strength at 5/5 X4 ext, Normal tone, Sensation intact, Cranial nerves 3-12 NL, Reflexes 2+ Psych/Mental Status: Mental status NL, Mood NL Labs/Diagnostic Data Labs Test 10/09/24 15:52 10/09/24 12:35 Range/Units Prothrombin Time 11.2 9.3-11.8 sec Prothrombin Time INR 1.06 0.9-1.15 Activated Partial Thromboplast Time 31.1 24.5-34.5 SEC D-Dimer, Quantitative 0.35 0.0-0.49 mg/L FEU Troponin I High Sensitivity 214 *H </=34 ng/L White Blood Count 4.9 4.4-10.8 10^3/uL Red Blood Count 4.37 4.0-5.20 10^6/uL Hemoglobin 12.0 L 12.2-16.2 g/dL Hematocrit 37.3 36.0-46.0 % Mean Corpuscular Volume 85.2 80.0-100.0 fL Mean Corpuscular Hemoglobin 27.5 L 28.0-32.0 pg Mean Corpuscular Hemoglobin Concent 32.3 32.0-36.0 g/dL Red Cell Distribution Width 15.7 H 11.8-14.3 % Platelet Count 272 140-450 10^3/uL Mean Platelet Volume 8.9 6.9-10.8 fL Neutrophils (%) (Auto) 61.8 37.0-80.0 % Lymphocytes (%) (Auto) 25.8 10.0-50.0 % Monocytes (%) (Auto) 9.0 0.0-12.0 % Eosinophils (%) (Auto) 2.9 0.0-7.0 % Basophils (%) (Auto) 0.5 0.0-2.0 % Neutrophils # (Auto) 3.0 1.6-8.6 10 ^3/uL Lymphocytes # (Auto) 1.3 0.4-5.4 10 ^3/uL Monocytes # (Auto) 0.4 0-1.3 10 ^3/uL Eosinophils # (Auto) 0.1 0-0.8 10 ^3/uL Basophils # (Auto) 0 0-0.2 10 ^3/uL Nucleated Red Blood Cells 0.0 % Sodium Level 141 136-145 mmol/L Potassium Level 4.6 3.5-5.1 mmol/L Chloride Level 110 H 98-107 mmol/L Carbon Dioxide Level 23 20-31 mmol/L Anion Gap 8 5-15 Blood Urea Nitrogen 13 9-23 mg/dL Creatinine 1.18 H 0.550-1.02 mg/dL Glomerular Filtration Rate Calc 55 >90 mL/min BUN/Creatinine Ratio 11.0 10.0-20.0 Serum Glucose 97 74-106 mg/dL Calcium Level 9.5 8.7-10.4 mg/dL Magnesium Level 2.1 1.6-2.6 mg/dL B-Type Natriuretic Peptide 999.99 0-100 pg/mL Assessment Syncope, likely cardiogenic, likely due to arrhythmia Acute on chronic systolic heart failure NSTEMI, likely type 2, due to above HFrEF EF 15% Status post AICD Hypertension Dyslipidemia Diabetes CKD Asthma History of CVA Morbid obesity * EKGs shows normal sinus rhythm with no significant ST or T-wave changes * Trop I is mildly raised, stable and BNP is raised at 1000 * X-ray shows cardiomegaly with bilateral lower zone infiltration Plan/recommendation (Case discussed with Dr. Lowe) * IV diuretic Lasix 40 mg b.i.d. * Device interrogation * Resumed home meds * We Follow up with the patient * Rest of plan per primary team Thank you for giving us the opportunity to take care of your patient. Please call back if you have any question/concern. Plan discussed with: Patient, Daughter, Other (RN) PEGGY GONZALEZ RESDIENT Oct 09, 2024 17:04
[2024-10-09] MEDS: GABAPENTIN 100 MG CAP PO ONE (17:45)
[2024-10-09] MEDS: SPIRONOLACTONE 25 MG TAB PO ONE (17:45)
[2024-10-09] MEDS: FUROSEMIDE 40 MG/4 ML VIAL IV SCH (17:47)
[2024-10-09] MEDS: AMIODARONE HCL 200 MG TAB PO ONE (18:18)
[2024-10-09 19:26] LABS: Urine Protein, UAD 1+ (Negative)
[2024-10-09 19:30] VITALS: PULSE 97; RESP 16; O2SAT 95
[2024-10-09] MEDS: ENOXAPARIN SOD 40 MG/0.4 ML SYRINGE SC ONE (20:18)
[2024-10-09] MEDS: LEVALBUTEROL HCL 1.25 MG/3 ML NEB NEB SCH (20:48)
[2024-10-09 20:58] VITALS: BP 112/73; PULSE 97; RESP 16; TEMP 97.5; O2SAT 95
[2024-10-09] MEDS: ATORVASTATIN 20 MG TAB PO SCH (22:48)
[2024-10-09] MEDS: CARVEDILOL 12.5 MG TAB PO SCH (22:49)
[2024-10-09] MEDS: SODIUM CHLOR 0.9% PF (SALINE LOCK) 10ML VIAL/SYR IV SCH (22:50)
[2024-10-09] MEDS: SACUBITRIL-VALSARTAN 24mg/26mg TAB PO SCH (22:50)
[2024-10-10] VITALS (20 sets, daily range): BP systolic 93–131; BP diastolic 66–86; PULSE 67–92; RESP 16–18; TEMP 97.6–98; O2SAT 92–100
[2024-10-10 06:39] LABS: Hematocrit 39.3 % (36.0-46.0); Hemoglobin 12.7 g/dL (12.2-16.2); Mean Corpuscular Hemoglobin 27.6 pg (28.0-32.0); Mean Corpuscular Volume 85.1 fL (80.0-100.0); Nucleated Red Blood Cells % 0.3 %
[2024-10-10 07:04] LABS: Alanine Aminotransferase 10 U/L (7-40); Albumin 4.2 g/dL (3.2-4.8); Alkaline Phosphatase 62 U/L (46-116); Anion Gap 9 (5-15); BUN/Creatinine Ratio 9.8 (10.0-20.0); Blood Urea Nitrogen 13 mg/dL (9-23); Calcium 9.0 mg/dL (8.7-10.4); Carbon Dioxide 23 mmol/L (20-31); Chloride 107 mmol/L (98-107); Glucose 112 mg/dL (74-106); Potassium 4.3 mmol/L (3.5-5.1); Sodium 139 mmol/L (136-145); Total Protein 7.4 g/dL (5.7-8.2)
[2024-10-10 07:05] LABS: Bilirubin, Total 0.7 mg/dL (0.2-1.0)
[2024-10-10] MEDS: SPIRONOLACTONE 25 MG TAB PO SCH (08:57)
[2024-10-10] MEDS: EMPAGLIFLOZIN 10 MG TAB PO SCH (08:58)
[2024-10-10] MEDS: AMIODARONE HCL 200 MG TAB PO SCH (08:58)
[2024-10-10] MEDS: ENOXAPARIN SOD 40 MG/0.4 ML SYRINGE SC SCH (08:59)
[2024-10-10] MEDS: GABAPENTIN 100 MG CAP PO SCH (08:59)
--- NOTE | 2024-10-10 09:10 | DVHPN2 ---
Progress Note Date Seen: Oct 10, 2024 Resident Creating Document: PEGGY GONZALEZ CHRISTIE Has the PT tested + for MRSA If YES, has PT been informed?: No Medical Necessity Reason Pt with a Central, PICC or Fol: No Subjective Review of Systems Patient seen and examined at the bedside. Patient is feeling better since admission does not have any active complaint at the moment. Patient reports: No new complaints, Feels better Changes from previous H/P or p: Changes Objective vital signs Vital Sign Date Time Temp Pulse Resp B/P (MAP) Pulse Ox O2 Delivery O2 Flow Rate FiO2 10/10/24 08:58 76 142/85 10/10/24 08:39 97.8 16 99 97.8 10/10/24 06:28 Room Air* 0 21 Total Intake and Output 10/09/24 10/09/24 10/10/24 15:00 23:00 07:00 Intake Total 400 ml Balance 400 ml medications Current Medications Medications Dose Ordered Sig/Tavia Route Start Time Stop Time Status Last Admin Dose Admin Aspirin 81 mg DAILY PO 10/10/24 10:00 10/10/24 08:59 81 MG Carvedilol 12.5 mg Q12HR PO 10/09/24 22:00 10/10/24 08:58 12.5 MG Atorvastatin Calcium 20 mg HS PO 10/09/24 22:00 10/09/24 22:48 20 MG Levalbuterol HCl 0.625 mg Q6HR NEB 10/09/24 18:00 10/10/24 06:28 0.625 MG Diagnostic Test (Pha) 1 strip ACHS 10/09/24 17:00 10/10/24 06:27 1 STRIP Insulin Human Regular ACHS SC 10/09/24 17:00 10/09/24 17:00 3 UNITS Dextrose 50 ml UD PRN IV 10/09/24 15:30 Sodium Chloride 10 ml Q8HR IV 10/09/24 22:00 10/10/24 06:27 10 ML Acetaminophen/ Hydrocodone Bitart 1 tab Q4HP PRN PO 10/09/24 15:30 Ondansetron HCl 4 mg Q4HP PRN IV 10/09/24 15:30 Docusate Sodium 100 mg BIDPRN PRN PO 10/09/24 15:30 Acetaminophen 650 mg Q6HP PRN PO 10/09/24 15:30 Nitroglycerin 0.4 mg Q5MINP PRN SL 10/09/24 17:00 Morphine Sulfate 2 mg Q30M PRN IV 10/09/24 17:00 Furosemide 40 mg BIDD IV 10/09/24 18:00 10/10/24 06:22 40 MG Spironolactone 50 mg DAILY PO 10/10/24 10:00 10/10/24 08:57 50 MG Empaglifozin 10 mg DAILY PO 10/10/24 10:00 10/10/24 08:58 10 MG Sacubitril/ Valsartan 1 tab BID PO 10/09/24 22:00 10/10/24 08:57 1 TAB Gabapentin 200 mg BID PO 10/10/24 10:00 10/10/24 08:59 200 MG Amiodarone HCl 400 mg BIDWM PO 10/10/24 08:00 10/10/24 08:58 400 MG Enoxaparin Sodium 40 mg DAILY SC 10/10/24 10:00 Examination General Appearance: Alert, Oriented X3, Cooperative, No acute distress HEENT: Atraumatic, PERRLA, EOMI, Mucous membrane moist/pink Respiratory: Clear to auscultation, Normal air movement Cardiovascular: Regular rate, Normal S1, Normal S2, No murmurs, no chest wall tenderness Abdominal: Normal bowel sounds, Soft, No tenderness, No hepatospenomegaly, No masses Extremities: No clubbing, No cyanosis, No edema, Normal pulses, No tenderness/swelling Skin: No rashes, No breakdown, No significant lesion Neuro: Normal gait, Normal speech, Strength at 5/5 X4 ext, Normal tone, Sensation intact, Cranial nerves 3-12 NL, Reflexes 2+ Psych/Mental Status: Mental status NL, Mood NL laboratory and microbiology Laboratory Tests 10/10/24 05:29 Test 10/10/24 05:29 Range/Units Serum Glucose 112 H 74-106 mg/dL Labs and/or images reviewed: Labs reviewed by me, Image(s) reviewed by me Problem List/Assessment/Plan Problem List/Assessment/Plan Syncope, likely cardiogenic, likely due to arrhythmia Acute on chronic systolic heart failure NSTEMI, likely type 2, due to above HFrEF EF 15% Status post AICD Hypertension Dyslipidemia Diabetes CKD Asthma History of CVA Morbid obesity * EKGs shows normal sinus rhythm with no significant ST or T-wave changes * Trop I is mildly raised, stable and BNP is raised at 1000 * X-ray shows cardiomegaly with bilateral lower zone infiltration Plan/recommendation (Case discussed with Dr. Lowe) * Continue IV diuretic Lasix 40 mg b.i.d. in hospital * Device interrogation performed, showed an episode of VT/VF which was converted to NSR with 35J shock * Discharge plan from Cardiology standpoint: Increased dose of amiodarone to 400 mg b.i.d., increase dose of carvedilol to 12.5 mg b.i.d., continue rest of home medicine, follow up with Dr. Lowe at office and referral for mitralclip. * We sign off with the patient * Rest of plan per primary team Thank you for giving us the opportunity to take care of your patient. Please call back if you have any question/concern. Plan discussed with: Patient, Other (RN) My Orders My Orders Orders - PEGGY GONZALEZ Procedure Category Date Status Time Furosemide Injection PHA 10/09/24 In Process (Lasix Injection) 18:00 Spironolactone PHA 10/10/24 In Process (Aldactone) 10:00 Empagliflozin PHA 10/10/24 In Process (Jardiance) 10:00 Sacubitril-Valsartan PHA 10/09/24 In Process (Entresto 24-26 Mg 22:00 Gabapentin Capsule PHA 10/10/24 In Process (Neurontin Capsule) 10:00 Amiodarone Tablet PHA 10/10/24 In Process (Cordarone Tablet) 08:00 Enoxaparin Sodium PHA 10/10/24 In Process (Lovenox) 10:00 PEGGY GONZALEZ RESDILEONOR Oct 10, 2024 09:10
[2024-10-10] MEDS ORDERED: FUROSEMIDE 40 MG/4 ML VIAL IV SCH (10:00)
--- NOTE | 2024-10-10 13:05 | DVHPN2 ---
Subjective Patient continues to report having dyspnea with ambulation. Reviewed: Care Plan, H&P, Labs, Medications Changes from previous H/P or p: No Changes General: Per HPI Eyes: No Pain, No Vision change, No Conjunctivae inflammation, No Eyelid inflammation, No Other, No Redness ENT: No Ear pain, No Ear discharge, No Nose pain, No Nose discharge, No Nose congestion, No Mouth pain, No Mouth swelling, No Throat pain, No Throat swelling, No Other Cardiovascular: No Chest Pain, No Palpitations, No Orthopnea, No Paroxysmal Noc. Dyspnea, No Edema, No Lt Headedness, No Other Respiratory: No Cough, No Dry; Shortness of breath; No SOB with excertion, No Wheezing, No Hemoptysis, No Pleuritic Pain, No Sputum; Other (SOB at rest) Gastrointestinal: No Nausea, No Vomiting, No Abdominal Pain, No Diarrhea, No Constipation, No Melena, No Hematochezia, No Other Genitourinary: No Dysuria, No Frequency, No Incontinence, No Hematuria, No Retention, No Other Musculoskeletal: other (lower extremity swelling ); No neck pain, No shoulder pain, No arm pain, No back pain, No hand pain, No leg pain, No foot pain Skin: No Rash, No Lesions, No Jaundice, No Bruising, No Other Objective Vitals Vital Signs Date Time Temp Pulse Resp B/P (MAP) Pulse Ox O2 Delivery O2 Flow Rate FiO2 10/10/24 12:47 69 18 99 10/10/24 12:41 Room Air 0.0 10/10/24 12:41 21 10/10/24 09:58 126/78 10/10/24 08:39 97.8 97.8 Intake/Output Intake and Output 10/10/24 07:00 Intake Total 400 ml Balance 400 ml Intake Oral 400 ml # Voids 1 General Appearance: Alert, Oriented X3, Cooperative, mild distress HEENT: Atraumatic, PERRLA Lungs: Clear to auscultation, Normal air movement Cardiovascular: Normal S1, Normal S2 Musculoskeletal: Normal sensory function, Normal motor function Neuro: Normal gait, Normal speech Skin: Dry, Intact Psych/Mental Status: Mental status NL, Mood NL Medications Current Medications Medications Dose Ordered Sig/Tavia Route Start Time Stop Time Status Last Admin Dose Admin Aspirin 81 mg DAILY PO 10/10/24 10:00 10/10/24 08:59 81 MG Carvedilol 12.5 mg Q12HR PO 10/09/24 22:00 10/10/24 08:58 12.5 MG Atorvastatin Calcium 20 mg HS PO 10/09/24 22:00 10/09/24 22:48 20 MG Levalbuterol HCl 0.625 mg Q6HR NEB 10/09/24 18:00 10/10/24 12:41 0.625 MG Diagnostic Test (Pha) 1 strip ACHS 10/09/24 17:00 10/10/24 11:45 1 STRIP Insulin Human Regular ACHS SC 10/09/24 17:00 10/09/24 17:00 3 UNITS Dextrose 50 ml UD PRN IV 10/09/24 15:30 Sodium Chloride 10 ml Q8HR IV 10/09/24 22:00 10/10/24 12:11 10 ML Acetaminophen/ Hydrocodone Bitart 1 tab Q4HP PRN PO 10/09/24 15:30 Ondansetron HCl 4 mg Q4HP PRN IV 10/09/24 15:30 Docusate Sodium 100 mg BIDPRN PRN PO 10/09/24 15:30 Acetaminophen 650 mg Q6HP PRN PO 10/09/24 15:30 Nitroglycerin 0.4 mg Q5MINP PRN SL 10/09/24 17:00 Morphine Sulfate 2 mg Q30M PRN IV 10/09/24 17:00 Furosemide 40 mg BIDD IV 10/09/24 18:00 10/10/24 06:22 40 MG Spironolactone 50 mg DAILY PO 10/10/24 10:00 10/10/24 08:57 50 MG Empaglifozin 10 mg DAILY PO 10/10/24 10:00 10/10/24 08:58 10 MG Sacubitril/ Valsartan 1 tab BID PO 10/09/24 22:00 10/10/24 08:57 1 TAB Gabapentin 200 mg BID PO 10/10/24 10:00 10/10/24 08:59 200 MG Amiodarone HCl 400 mg BIDWM PO 10/10/24 08:00 10/10/24 08:58 400 MG Enoxaparin Sodium 40 mg DAILY SC 10/10/24 10:00 Laboratory Results Laboratory Tests 10/10/24 05:29 Chemistry Test 10/10/24 05:29 Albumin 4.2 g/dL (3.2-4.8) Calcium Level 9.0 mg/dL (8.7-10.4) Total Protein 7.4 g/dL (5.7-8.2) Coagulation Test 10/09/24 15:52 Prothrombin Time 11.2 sec (9.3-11.8) Prothrombin Time INR 1.06 (0.9-1.15) Activated Partial Thromboplast Time 31.1 SEC (24.5-34.5) D-Dimer, Quantitative 0.35 mg/L FEU (0.0-0.49) LFT Test 10/10/24 05:29 Alanine Aminotransferase (ALT) 10 U/L (7-40) Alkaline Phosphatase 62 U/L (46-116) Aspartate Amino Transferase (AST) 16 U/L (13-40) Total Bilirubin 0.7 mg/dL (0.2-1.0) Urinalysis Test 10/09/24 13:23 Urine Color Yellow (Yellow) Urine Clarity Clear (Clear) Urine pH 6.0 (5.0-9.0) Urine Specific [place] > 1.050 (1.001-1.035) Urine Protein 1+ (Negative) H Urine Ketones Negative (Negative) Urine Blood Negative /uL (Negative) Urine Nitrite Negative (Negative) Urine Bilirubin Negative (Negative) Urine Urobilinogen Normal mg/dL (Negative) Urine Leukocyte Esterase Negative /uL (Negative) Urine RBC 1 /hpf (0 - 4) Urine Microscopic WBC 2 /HPF (0-5) Urine Squamous Epithelial Cells Mod /hpf (<5) Urine Bacteria Few /hpf (None Seen) H Urine Mucus Few (None Seen) Urine Glucose Trace mg/dL (Normal) Labs and/or images reviewed: Labs reviewed by me, Image(s) reviewed by me Assessment/Plan Assessment/Plan Impression: -acute decompensated systolic heart failure, HFrEF with ejection fraction 15% -obesity -primary hypertension -nonischemic cardiomyopathy -diabetes mellitus -dyslipidemia -chronic kidney disease stage IIIA -rule out cardiac dysrhythmia causing syncopal episode Plan: -long discussion made with the patient reveals that her heart failure has been getting progressively worse over the past one month. Patient reports having water weight gain throughout her body. Patient also reports having periods of hypotension for which he is holding her home medications. -pacemaker interrogation -continue guideline directed therapy -continue current IV diuresis with Lasix, diuresis with spironolactone and Jardiance -regular insulin sliding scale -fluid restriction of 1200 mL per day -repeat labs in a.m. Total time spent with patient discussing and formulating plan of care: 35 minutes. This medical document was created using an electronic medical record system with [employer] dictation system. Although this document has been carefully reviewed, there may still be some phonetic and typographical errors. These areas are purely typographical due to imperfections of the software programs, and do not reflect any compromise in the patient's medical care. Plan discussed with: Patient, Other (RN) Date of Service: Oct 10, 2024 Billing Provider: SANDRO KNOX NP Common Visit Codes: [id number] INP/OBS CARE(HIGH) SANDRO KNOX NP Oct 10, 2024 13:05
--- NOTE | 2024-10-10 15:38 | DVHSR ---
APPROVED REPORT EXAM: Two-dimensional and M-mode echocardiogram with Doppler and color Doppler. Blood Pressure: 121/69 mmHg INDICATION LV assessment RISK FACTORS Obesity: Height: 5'10", Weight: 266 DIMENSIONS LVDd7.4 (3.8-5.7cm)LA (2D)5.1 (1.9-4.0cm)Aortic Root2.8 (2.0-3.7cm) LVDs6.9 (2.5-4.0cm)LA (MM) (1.9-4.0cm)Aortic Cusp Exc1.6 (1.5-2.0cm) EF (%) 15.0 (55-70%)Rt. Atrium (1.9-4.0cm)Asc. Aorta cm IVSd1.0 (0.7-1.1cm)RV (D) (1.8-2.4cm) PWd1.3 (0.7-1.1cm) Mitral Valve MitralMitral Stenosis E wave1.41m/sMV Mean GR.mmHg E/A ratio0.02D MVAcm2 Aortic Valve Aortic ValveAortic Stenosis V10.83m/Ian Mean GR.3mmHg V21.29m/Ian Peak GR.7mmHg LVOT Diameter1.9 (1.8-2.4cm)Doppler AVA1.82cm2 Pulmonic Valve V20.61m/s Tricuspid Valve TR Velocity3.44m/s [id number] Other Information Technically limited study due to body habitus. Conclusion lvef 15% marked dilated LV left atrium enlarged severe mtiral regurg, central RV not well seen PH not assessed mild aortic regurg
[2024-10-10] MEDS: CARVEDILOL 3.125 MG TAB PO SCH (21:03)
[2024-10-10] MEDS: SACUBITRIL-VALSARTAN 24mg/26mg TAB PO SCH (21:04)
[2024-10-11] VITALS (16 sets, daily range): BP systolic 97–117; BP diastolic 62–74; PULSE 63–78; RESP 14–19; TEMP 96.2–98.3; O2SAT 94–100
[2024-10-11 06:55] LABS: Anion Gap 10 (5-15); Calcium 9.2 mg/dL (8.7-10.4); Carbon Dioxide 26 mmol/L (20-31); Chloride 104 mmol/L (98-107); Potassium 3.8 mmol/L (3.5-5.1); Sodium 140 mmol/L (136-145)
[2024-10-11 07:01] LABS: BUN/Creatinine Ratio 10.8 (10.0-20.0); Blood Urea Nitrogen 17 mg/dL (9-23)
[2024-10-11 07:06] LABS: Glucose 115 mg/dL (74-106)
[2024-10-11 07:17] LABS: Magnesium 2.2 mg/dL (1.6-2.6)
--- NOTE | 2024-10-11 15:25 | DVHPN2 ---
Subjective Patient continues to report having dyspnea with ambulation. Reviewed: Care Plan, H&P, Labs, Medications Changes from previous H/P or p: No Changes General: Per HPI Eyes: No Pain, No Vision change, No Conjunctivae inflammation, No Eyelid inflammation, No Other, No Redness ENT: No Ear pain, No Ear discharge, No Nose pain, No Nose discharge, No Nose congestion, No Mouth pain, No Mouth swelling, No Throat pain, No Throat swelling, No Other Cardiovascular: No Chest Pain, No Palpitations, No Orthopnea, No Paroxysmal Noc. Dyspnea, No Edema, No Lt Headedness, No Other Respiratory: No Cough, No Dry; Shortness of breath; No SOB with excertion, No Wheezing, No Hemoptysis, No Pleuritic Pain, No Sputum; Other (SOB at rest) Gastrointestinal: No Nausea, No Vomiting, No Abdominal Pain, No Diarrhea, No Constipation, No Melena, No Hematochezia, No Other Genitourinary: No Dysuria, No Frequency, No Incontinence, No Hematuria, No Retention, No Other Musculoskeletal: other (lower extremity swelling ); No neck pain, No shoulder pain, No arm pain, No back pain, No hand pain, No leg pain, No foot pain Skin: No Rash, No Lesions, No Jaundice, No Bruising, No Other Objective Vitals Vital Signs Date Time Temp Pulse Resp B/P (MAP) Pulse Ox O2 Delivery O2 Flow Rate FiO2 10/11/24 13:10 69 96/62 10/11/24 13:00 98.3 19 95 98.3 10/11/24 11:27 Room Air 0.0 10/11/24 11:27 21 Intake/Output Intake and Output 10/11/24 07:00 Intake Total 1725 ml Output Total 300 ml Balance 1425 ml Intake Oral 1725 ml Output Urine Total 300 ml # Voids 8 # Bowel Movements 1 General Appearance: Alert, Oriented X3, Cooperative, mild distress HEENT: Atraumatic, PERRLA Lungs: Clear to auscultation, Normal air movement Cardiovascular: Normal S1, Normal S2 Musculoskeletal: Normal sensory function, Normal motor function Neuro: Normal gait, Normal speech Skin: Dry, Intact Psych/Mental Status: Mental status NL, Mood NL Medications Current Medications Medications Dose Ordered Sig/Tavia Route Start Time Stop Time Status Last Admin Dose Admin Aspirin 81 mg DAILY PO 10/10/24 10:00 10/11/24 09:23 81 MG Atorvastatin Calcium 20 mg HS PO 10/09/24 22:00 10/10/24 21:04 20 MG Levalbuterol HCl 0.625 mg Q6HR NEB 10/09/24 18:00 10/11/24 11:27 0.625 MG Diagnostic Test (Pha) 1 strip ACHS 10/09/24 17:00 10/11/24 11:35 1 STRIP Insulin Human Regular ACHS SC 10/09/24 17:00 10/09/24 17:00 3 UNITS Dextrose 50 ml UD PRN IV 10/09/24 15:30 Sodium Chloride 10 ml Q8HR IV 10/09/24 22:00 10/11/24 14:05 10 ML Acetaminophen/ Hydrocodone Bitart 1 tab Q4HP PRN PO 10/09/24 15:30 Ondansetron HCl 4 mg Q4HP PRN IV 10/09/24 15:30 Docusate Sodium 100 mg BIDPRN PRN PO 10/09/24 15:30 Acetaminophen 650 mg Q6HP PRN PO 10/09/24 15:30 Nitroglycerin 0.4 mg Q5MINP PRN SL 10/09/24 17:00 Morphine Sulfate 2 mg Q30M PRN IV 10/09/24 17:00 Furosemide 40 mg BIDD IV 10/09/24 18:00 10/11/24 05:24 40 MG Spironolactone 50 mg DAILY PO 10/10/24 10:00 10/11/24 12:00 50 MG Empaglifozin 10 mg DAILY PO 10/10/24 10:00 10/11/24 09:23 10 MG Gabapentin 200 mg BID PO 10/10/24 10:00 10/10/24 08:59 200 MG Amiodarone HCl 400 mg BIDWM PO 10/10/24 08:00 10/11/24 09:22 400 MG Enoxaparin Sodium 40 mg DAILY SC 10/10/24 10:00 Laboratory Results Laboratory Tests 10/10/24 05:29 10/11/24 05:57 Chemistry Test 10/11/24 05:57 Calcium Level 9.2 mg/dL (8.7-10.4) Magnesium Level 2.2 mg/dL (1.6-2.6) Urinalysis Test 10/09/24 13:23 Urine Color Yellow (Yellow) Urine Clarity Clear (Clear) Urine pH 6.0 (5.0-9.0) Urine Specific [place] > 1.050 (1.001-1.035) Urine Protein 1+ (Negative) H Urine Ketones Negative (Negative) Urine Blood Negative /uL (Negative) Urine Nitrite Negative (Negative) Urine Bilirubin Negative (Negative) Urine Urobilinogen Normal mg/dL (Negative) Urine Leukocyte Esterase Negative /uL (Negative) Urine RBC 1 /hpf (0 - 4) Urine Microscopic WBC 2 /HPF (0-5) Urine Squamous Epithelial Cells Mod /hpf (<5) Urine Bacteria Few /hpf (None Seen) H Urine Mucus Few (None Seen) Urine Glucose Trace mg/dL (Normal) Labs and/or images reviewed: Labs reviewed by me, Image(s) reviewed by me Assessment/Plan Assessment/Plan Impression: -acute decompensated systolic heart failure, HFrEF with ejection fraction 15% -obesity -primary hypertension -nonischemic cardiomyopathy -diabetes mellitus -dyslipidemia -chronic kidney disease stage IIIA -rule out cardiac dysrhythmia causing syncopal episode Plan: Events: Patient continues to report having symptoms of NYHF class three. Pacemaker interrogation reveals patient did have a BUN of VF/VT with electronic conversion at home. Discussed case with Cardiology. We will stop Leodan and beta- vangie therapy at this time given decreased blood pressure. Trial of Dobutrex drip -hold carvedilol and Entresto -stop Lasix, start Bumex -regular insulin sliding scale -fluid restriction of 1200 mL per day -repeat labs in a.m. Total time spent with patient discussing and formulating plan of care: 35 minutes. This medical document was created using an electronic medical record system with [employer] dictation system. Although this document has been carefully reviewed, there may still be some phonetic and typographical errors. These areas are purely typographical due to imperfections of the software programs, and do not reflect any compromise in the patient's medical care. Plan discussed with: Patient, Other (RN) My Orders Orders - SANDRO KONX NP Procedure Category Date Status Time Dobutamine Drip PHA 10/11/24 Transmitted 15:30 Date of Service: Oct 11, 2024 Billing Provider: SANDRO KNOX NP Common Visit Codes: [id number] INP/OBS CARE(HIGH) SANDRO KNOX PIPE FINISHER Oct 11, 2024 15:25
[2024-10-11] MEDS: DOBUTamine 1000MCG/ML 250 ML IV SCH (17:34)
[2024-10-11] MEDS: BUMETANIDE 1mg/4ml VIAL (0.25mg/ml) IV SCH (17:54)
[2024-10-12] VITALS (18 sets, daily range): BP systolic 113–128; BP diastolic 62–71; PULSE 61–84; RESP 16–22; TEMP 97.3–98.1; O2SAT 94–100
[2024-10-12 10:17] LABS: Chloride 101 mmol/L (98-107); Potassium 3.6 mmol/L (3.5-5.1); Sodium 138 mmol/L (136-145)
[2024-10-12 10:18] LABS: Anion Gap 9 (5-15); Calcium 9.7 mg/dL (8.7-10.4); Carbon Dioxide 28 mmol/L (20-31)
[2024-10-12 10:23] LABS: BUN/Creatinine Ratio 14.8 (10.0-20.0); Blood Urea Nitrogen 20 mg/dL (9-23); Glucose 105 mg/dL (74-106); Magnesium 2.0 mg/dL (1.6-2.6)
--- NOTE | 2024-10-12 16:23 | DVHPN2 ---
Subjective Patient reports that her breathing has improved. Continues to have dyspnea with exertion Reviewed: Care Plan, H&P, Labs, Medications Changes from previous H/P or p: No Changes General: Per HPI Eyes: No Pain, No Vision change, No Conjunctivae inflammation, No Eyelid inflammation, No Other, No Redness ENT: No Ear pain, No Ear discharge, No Nose pain, No Nose discharge, No Nose congestion, No Mouth pain, No Mouth swelling, No Throat pain, No Throat swelling, No Other Cardiovascular: No Chest Pain, No Palpitations, No Orthopnea, No Paroxysmal Noc. Dyspnea, No Edema, No Lt Headedness, No Other Respiratory: No Cough, No Dry; Shortness of breath; No SOB with excertion, No Wheezing, No Hemoptysis, No Pleuritic Pain, No Sputum; Other (SOB at rest) Gastrointestinal: No Nausea, No Vomiting, No Abdominal Pain, No Diarrhea, No Constipation, No Melena, No Hematochezia, No Other Genitourinary: No Dysuria, No Frequency, No Incontinence, No Hematuria, No Retention, No Other Musculoskeletal: other (lower extremity swelling ); No neck pain, No shoulder pain, No arm pain, No back pain, No hand pain, No leg pain, No foot pain Skin: No Rash, No Lesions, No Jaundice, No Bruising, No Other Objective Vitals Vital Signs Date Time Temp Pulse Resp B/P (MAP) Pulse Ox O2 Delivery O2 Flow Rate FiO2 10/12/24 13:00 98.0 68 16 128/69 (88) 98 98.0 10/12/24 11:41 Room Air 10/12/24 11:41 0 21 Intake/Output Intake and Output 10/12/24 07:00 Intake Total 1850 ml Balance 1850 ml Intake Oral 1600 ml IV Total 250 ml # Voids 6 # Bowel Movements 3 General Appearance: Alert, Oriented X3, Cooperative, mild distress HEENT: Atraumatic, PERRLA Lungs: Clear to auscultation, Normal air movement Cardiovascular: Normal S1, Normal S2 Musculoskeletal: Normal sensory function, Normal motor function Neuro: Normal gait, Normal speech Skin: Dry, Intact Psych/Mental Status: Mental status NL, Mood NL Medications Current Medications Medications Dose Ordered Sig/Tavia Route Start Time Stop Time Status Last Admin Dose Admin Aspirin 81 mg DAILY PO 10/10/24 10:00 10/12/24 08:54 81 MG Atorvastatin Calcium 20 mg HS PO 10/09/24 22:00 10/11/24 21:32 20 MG Levalbuterol HCl 0.625 mg Q6HR NEB 10/09/24 18:00 10/12/24 11:41 0.625 MG Diagnostic Test (Pha) 1 strip ACHS 10/09/24 17:00 10/12/24 11:18 1 STRIP Insulin Human Regular ACHS SC 10/09/24 17:00 10/09/24 17:00 3 UNITS Dextrose 50 ml UD PRN IV 10/09/24 15:30 Sodium Chloride 10 ml Q8HR IV 10/09/24 22:00 10/12/24 14:00 10 ML Acetaminophen/ Hydrocodone Bitart 1 tab Q4HP PRN PO 10/09/24 15:30 Ondansetron HCl 4 mg Q4HP PRN IV 10/09/24 15:30 Docusate Sodium 100 mg BIDPRN PRN PO 10/09/24 15:30 Acetaminophen 650 mg Q6HP PRN PO 10/09/24 15:30 Nitroglycerin 0.4 mg Q5MINP PRN SL 10/09/24 17:00 Morphine Sulfate 2 mg Q30M PRN IV 10/09/24 17:00 Spironolactone 50 mg DAILY PO 10/10/24 10:00 10/12/24 08:54 50 MG Empaglifozin 10 mg DAILY PO 10/10/24 10:00 10/12/24 08:54 10 MG Gabapentin 200 mg BID PO 10/10/24 10:00 10/10/24 08:59 200 MG Amiodarone HCl 400 mg BIDWM PO 10/10/24 08:00 10/12/24 08:53 400 MG Enoxaparin Sodium 40 mg DAILY SC 10/10/24 10:00 Dobutamine HCl/ Dextrose 250 ml @ 18.6 mls/hr [id number] IV 10/11/24 15:30 10/12/24 06:05 18.6 MLS/HR Bumetanide 1 mg BIDD IV 10/11/24 18:00 10/12/24 05:54 1 MG Laboratory Results Laboratory Tests 10/10/24 05:29 10/12/24 09:50 Chemistry Test 10/12/24 09:50 Calcium Level 9.7 mg/dL (8.7-10.4) Magnesium Level 2.0 mg/dL (1.6-2.6) Urinalysis Test 10/09/24 13:23 Urine Color Yellow (Yellow) Urine Clarity Clear (Clear) Urine pH 6.0 (5.0-9.0) Urine Specific [place] > 1.050 (1.001-1.035) Urine Protein 1+ (Negative) H Urine Ketones Negative (Negative) Urine Blood Negative /uL (Negative) Urine Nitrite Negative (Negative) Urine Bilirubin Negative (Negative) Urine Urobilinogen Normal mg/dL (Negative) Urine Leukocyte Esterase Negative /uL (Negative) Urine RBC 1 /hpf (0 - 4) Urine Microscopic WBC 2 /HPF (0-5) Urine Squamous Epithelial Cells Mod /hpf (<5) Urine Bacteria Few /hpf (None Seen) H Urine Mucus Few (None Seen) Urine Glucose Trace mg/dL (Normal) Labs and/or images reviewed: Labs reviewed by me, Image(s) reviewed by me Assessment/Plan Assessment/Plan Impression: -acute decompensated systolic heart failure, HFrEF with ejection fraction 15% -obesity -primary hypertension -nonischemic cardiomyopathy -diabetes mellitus -dyslipidemia -chronic kidney disease stage IIIA -rule out cardiac dysrhythmia causing syncopal episode Plan: Events: Patient reports improvement with respiratory status. Improvement with the patient's lower extremity swelling. No signs of tachycardia overnight. Increase dobutamine two 5 micrograms/minute -hold carvedilol and Entresto -continue -regular insulin sliding scale -fluid restriction of 1200 mL per day -repeat labs in a.m. Total time spent with patient discussing and formulating plan of care: 35 minutes. This medical document was created using an electronic medical record system with [employer] dictation system. Although this document has been carefully reviewed, there may still be some phonetic and typographical errors. These areas are purely typographical due to imperfections of the software programs, and do not reflect any compromise in the patient's medical care. Plan discussed with: Patient, Other (RN) Date of Service: Oct 12, 2024 Billing Provider: SANDRO KNOX NP Common Visit Codes: [id number] INP/OBS CARE(HIGH) SANDRO KNOX NP Oct 12, 2024 16:23
[2024-10-12] MEDS: DOBUTamine 1000MCG/ML 250 ML IV SCH (17:50)
[2024-10-13] VITALS (16 sets, daily range): BP systolic 98–134; BP diastolic 55–76; PULSE 60–87; RESP 17–18; TEMP 97.6–98.2; O2SAT 95–100
[2024-10-13] MEDS: NITROGLYCERIN 2% OINT 1GM PKG TD ONE (01:03)
[2024-10-13 07:06] LABS: Chloride 105 mmol/L (98-107); Potassium 3.7 mmol/L (3.5-5.1); Sodium 140 mmol/L (136-145)
[2024-10-13 07:07] LABS: Anion Gap 9 (5-15); Calcium 9.8 mg/dL (8.7-10.4); Carbon Dioxide 26 mmol/L (20-31)
[2024-10-13 07:12] LABS: BUN/Creatinine Ratio 12.0 (10.0-20.0); Blood Urea Nitrogen 17 mg/dL (9-23)
[2024-10-13 07:13] LABS: Glucose 118 mg/dL (74-106)
[2024-10-13] MEDS ORDERED: METO5TAB5 PO (12:17)
[2024-10-13] MEDS ORDERED: OXYC-998 PO (12:17)
[2024-10-13] MEDS ORDERED: ASPI-325 PO (12:17)
[2024-10-13] MEDS ORDERED: ESCI1TAB37 PO (12:17)
[2024-10-13] MEDS ORDERED: MELO15TA29 PO (12:17)
[2024-10-13] MEDS ORDERED: ATOR40TA52 PO (12:17)
[2024-10-13] MEDS ORDERED: OMEP1CAP70 PO (12:17)
[2024-10-13] MEDS ORDERED: FURO20TA4 PO (12:17)
[2024-10-13] MEDS ORDERED: CARV3.1240 PO (12:17)
[2024-10-13] MEDS ORDERED: AMIO200T13 PO (12:21)
[2024-10-13] MEDS ORDERED: FURO1TAB31 PO (12:21)
[2024-10-13] MEDS: PHENTOLAMINE MESYLATE 5 MG INJ VIAL SUBCUT ONE (12:26)
[2024-10-13] MEDS: DERMOPLAST 60ML BOTTLE TOP ONE (12:26)
--- NOTE | 2024-10-13 12:30 | DVHDS2 ---
Discharge Summary Date of Admission Oct 09, 2024 at 16:47 Date of Discharge: Oct 13, 2024 Admitting Diagnosis Acute exacerbation of heart failure Labs/Diagnostic Data: Laboratory Results Test 10/13/24 10:43 10/13/24 06:16 10/12/24 09:50 10/10/24 05:29 POC Glucose 118 mg/dl (70-106) Sodium Level 140 mmol/L (136-145) Potassium Level 3.7 mmol/L (3.5-5.1) Chloride Level 105 mmol/L (98-107) Carbon Dioxide Level 26 mmol/L (20-31) Anion Gap 9 (5-15) Blood Urea Nitrogen 17 mg/dL (9-23) Creatinine 1.42 mg/dL (0.550-1.02) Glomerular Filtration Rate Calc 44 mL/min (>90) BUN/Creatinine Ratio 12.0 (10.0-20.0) Serum Glucose 118 mg/dL (74-106) Calcium Level 9.8 mg/dL (8.7-10.4) Magnesium Level 2.0 mg/dL (1.6-2.6) White Blood Count 5.1 10^3/uL (4.4-10.8) Red Blood Count 4.62 10^6/uL (4.0-5.20) Hemoglobin 12.7 g/dL (12.2-16.2) Hematocrit 39.3 % (36.0-46.0) Mean Corpuscular Volume 85.1 fL (80.0-100.0) Mean Corpuscular Hemoglobin 27.6 pg (28.0-32.0) Mean Corpuscular Hemoglobin Concent 32.4 g/dL (32.0-36.0) Red Cell Distribution Width 15.6 % (11.8-14.3) Platelet Count 300 10^3/uL (140-450) Mean Platelet Volume 9.5 fL (6.9-10.8) Neutrophils (%) (Auto) 50.3 % (37.0-80.0) Lymphocytes (%) (Auto) 35.6 % (10.0-50.0) Monocytes (%) (Auto) 7.5 % (0.0-12.0) Eosinophils (%) (Auto) 5.5 % (0.0-7.0) Basophils (%) (Auto) 1.1 % (0.0-2.0) Neutrophils # (Auto) 2.6 10 ^3/uL (1.6-8.6) Lymphocytes # (Auto) 1.8 10 ^3/uL (0.4-5.4) Monocytes # (Auto) 0.4 10 ^3/uL (0-1.3) Eosinophils # (Auto) 0.3 10 ^3/uL (0-0.8) Basophils # (Auto) 0.1 10 ^3/uL (0-0.2) Nucleated Red Blood Cells 0.3 % Total Bilirubin 0.7 mg/dL (0.2-1.0) Aspartate Amino Transferase (AST) 16 U/L (13-40) Alanine Aminotransferase (ALT) 10 U/L (7-40) Alkaline Phosphatase 62 U/L (46-116) Total Protein 7.4 g/dL (5.7-8.2) Albumin 4.2 g/dL (3.2-4.8) Test 10/09/24 15:52 10/09/24 13:23 10/09/24 12:35 Prothrombin Time 11.2 sec (9.3-11.8) Prothrombin Time INR 1.06 (0.9-1.15) Activated Partial Thromboplast Time 31.1 SEC (24.5-34.5) D-Dimer, Quantitative 0.35 mg/L FEU (0.0-0.49) Troponin I High Sensitivity 214 ng/L (</=34) Urine Color Yellow (Yellow) Urine Clarity Clear (Clear) Urine pH 6.0 (5.0-9.0) Urine Specific [place] > 1.050 (1.001-1.035) Urine Protein 1+ (Negative) Urine Ketones Negative (Negative) Urine Blood Negative /uL (Negative) Urine Nitrite Negative (Negative) Urine Bilirubin Negative (Negative) Urine Urobilinogen Normal mg/dL (Negative) Urine Leukocyte Esterase Negative /uL (Negative) Urine RBC 1 /hpf (0 - 4) Urine Microscopic WBC 2 /HPF (0-5) Urine Squamous Epithelial Cells Mod /hpf (<5) Urine Bacteria Few /hpf (None Seen) Urine Mucus Few (None Seen) Urine Glucose Trace mg/dL (Normal) B-Type Natriuretic Peptide 999.99 pg/mL (0-100) Other Laboratory Tests 10/13/24 06:16 10/10/24 05:29 Brief Hx & Hospital Course: History of Present Illness The patient is a 53-year-old female with multiple past medical history including CHF, DM, hyperlipidemia, and hypertension who presented to [facility] ED for evaluation of syncopal episode. As reported by family, patient had loss of consciousness for a couple of seconds and was able to assist her down to the floor. Patient reports sitting on a chair, felt her pacemaker shock her and then was unable to recall further events. Patient had similar episode in January of 2024 where the pacemaker shocked her and then lost consciousness. Patient was seen and evaluated in the ED, laboratory data shows WBC 4.9, platelets 272, sodium 141, potassium 4.6, BUN 13, creatinine 1.18, glucose 97, calcium 9.5, BNP 999.99, troponin 192, blood pressure 121/69, heart rate 96, temperature 97.7 F, O2 saturation 97% on oxygen. Chest x-ray revealing mild congestive heart failure. Patient was started on IV Lasix, please see medication orders section in the computer. On my assessment, patient denied chest pain, no headache, no dizziness, currently on oxygen, no nausea, no vomiting, no fever, no chills. Patient was admitted for further evaluation and medical management. Course of hospitalization: Cardiology consultation was obtained. Patient had titration up of both Entresto and carvedilol with IV diuresis with Lasix. Patient had borderline hypotension with no improvement with dyspnea with exertion. Discussion was made with Cardiology. Beta-vangie and RICK inhibitors were held with initiation of dobutamine drip. Patient was on dobutamine for 48 hours, with patient's heart failure improving dramatically. Patient is able to ambulate with minimal dyspnea, and no noted hypoxia. Patient also had Lasix switched to IV Bumex. Patient's lower extremity swelling has improved. Patient had infiltration of dobutamine early this a.m., for which the evening covering hospitalist ordered nitro paste over the infiltration site. After assessment by myself, there was noted ecchymosis around the insertion site. Patient will be treated with Regitine 5 mg subcutaneous injection around the insertion site of the IV. This treatment plan was discussed with the patient. Patient will be discharged later this afternoon, after monitoring the patient's blood pressure off Dobutrex. She will be restarted on carvedilol 3.125 mg p.o. daily, continue metolazone 5 mg p.o. daily, with Entresto to be stopped, replaced by lisinopril given patient's noted hypotension. Remainder medication reconciliation can be found on discharge orders. Patient is going to follow up with her PCP and [employer] [employer] [facility] in 1-2 weeks. All questions answered. Physical examination General: Alert and Oriented x3. No acute distress. Well-nourished. Eyes: EOMI. Anicteric. HENT: Moist mucous membranes. Lungs: Clear to auscultation bilaterally. No accessory muscle use. Cardiovascular: Regular rate and rhythm. No murmur. No JVD. Abdomen: Soft, non-tender and non-distended. No palpable masses. Extremities: No edema. Non-tender. Skin: No rashes or lesions. Warm. Neurologic: No focal neurological deficits. CN II-XII grossly intact, but not individually tested. Psychiatric: Cooperative. Appropriate mood and affect. Total time spent with patient discussing and formulating plan of care: 35 minutes. This medical document was created using an electronic medical record system with [employer] dictation system. Although this document has been carefully reviewed, there may still be some phonetic and typographical errors. These areas are purely typographical due to imperfections of the software programs, and do not reflect any compromise in the patient's medical care. Consults/Reason for consult Cardiology: Decompensated heart failure Condition at Discharge: Poor Final Diagnosis/Problems List Acute on chronic decompensated systolic heart failure Secondary diagnosis: -acute decompensated systolic heart failure, HFrEF with ejection fraction 15% -obesity -primary hypertension -nonischemic cardiomyopathy -diabetes mellitus -dyslipidemia -chronic kidney disease stage IIIA -rule out cardiac dysrhythmia causing syncopal episode Discharge Disposition: Home Discharge Instruct/Medications Diet: Consistent carbohydrate, Cardiac 2g Na,low cholest Diet comment: Fluid restriction 1400 mL per day Activity: No Restrictions, As Tolerated Follow Up/Referral: Follow up with [facility] [employer] [facility] in 1-2 weeks Follow up with the PCP in 1-2 weeks Medications: Amiodarone 400 mg p.o. b.i.d. x2 weeks, then decrease to 400 mg p.o. daily Continue carvedilol 3.125 mg p.o. b.i.d. Stop Entresto, lisinopril 2.5 mg p.o. daily Lasix 40 mg p.o. b.i.d. Continue metolazone 5 mg p.o. daily Continue Jardiance 10 mg p.o. daily Refer to medication reconciliation for remainder of home medication Scheduled Amiodarone HCl (Amiodarone HCl), 400 MG PO BIDWM Aspirin (Aspirin Low Dose), 1 TAB PO DAILY, (Reported) Atorvastatin Calcium (Atorvastatin Calcium), 1 TAB PO DAILY, (Reported) Carvedilol (Carvedilol), 1 TAB PO BID, (Reported) Empagliflozin (Jardiance), 10 MG PO DAILY Furosemide (Lasix), 10 DAILY, (Reported) Furosemide (Furosemide), 1 TAB PO BID, (Reported) Furosemide (Lasix), 40 MG PO BID Meloxicam (Meloxicam), 1 TAB PO DAILY, (Reported) Metolazone (Metolazone), 1 TAB PO DAILY, (Reported) Omeprazole (Omeprazole Dr), 1 CAP PO DAILY, (Reported) Ondansetron (Zofran), 1 TAB PO BID Scheduled PRN Oxycodone HCl (Oxycodone Hydrochloride), 1 TAB PO Q6HPRN PRN, (Reported) Miscellaneous Medications Albuterol Sulfate (Albuterol Sulfate), (Reported) Escitalopram Oxalate (Escitalopram Oxalate), 1 TAB PO, (Reported) 36 Discharge Statement: "Patient was advised to return to the ER or call 911 if any headaches, dizziness, shortness of breath, chest pain, abdominal pain, bleeding, fevers, or worsening of medical condition. Patient was counseled about treatment plan, medications, possible side effects, patientverbalized understanding. All questions were answered to the best of my ability. This discharge took greater then 30 minutes in planning, reviewing documentation, counseling the patient, and discussing with other team members." ASSESSMENT ASSESSMENT Assessment Acute on chronic decompensated systolic heart failure Date of Service: Oct 13, 2024 Billing Provider: SANDRO KNOX NP Common Visit Codes: 57913-MQI/[id number] DISCH DAY >30min SANDRO KNOX NP Oct 13, 2024 12:30
== END 2024-10-13 15:43 | disposition home or self-care (01) | DRG 194 ==
LOC: EDBD 10:35 → ER 10:35 → OVERFLOW 16:47 → TELE-WESTW 23:48
PROVIDERS: ADMIT Nurse Practitioner Acute Care; ATTEND Nurse Practitioner Acute Care
DX: I13.0 Hypertensive heart and chronic kidney disease with heart failure and stage 1 through stage 4 chronic kidney disease, or unspecified chronic kidney disease (principal); I21.A1 Myocardial infarction type 2; I42.8 Other cardiomyopathies; I50.23 Acute on chronic systolic (congestive) heart failure; E11.22 Type 2 diabetes mellitus with diabetic chronic kidney disease; E78.5 Hyperlipidemia, unspecified; J45.909 Unspecified asthma, uncomplicated; I49.9 Cardiac arrhythmia, unspecified; N18.31 Chronic kidney disease, stage 3a; E11.43 Type 2 diabetes mellitus with diabetic autonomic (poly)neuropathy; E66.01 Morbid (severe) obesity due to excess calories; Z68.41 Body mass index [BMI] 40.0-44.9, adult; Z95.810 Presence of automatic (implantable) cardiac defibrillator; Z86.73 Personal history of transient ischemic attack (TIA), and cerebral infarction without residual deficits; Z82.49 Family history of ischemic heart disease and other diseases of the circulatory system; Z79.899 Other long term (current) drug therapy; Z91.048 Other nonmedicinal substance allergy status; Z87.442 Personal history of urinary calculi; Z90.710 Acquired absence of both cervix and uterus
CPT/HCPCS: 36415; 71045; 71275; 80048; 80053; 81001; 82962; 83735; 83880; 84484; 85025; 85379; 85610; 85730; 93005; 93306; 94640; 99291; G0378; J1815